=== PATIENT | male | born 1940 | race Caucasian/White ===

== ENCOUNTER 2017-08-14 21:08 | Inpatient (IN) | payer OTHER, MEDICARE ==
[~2017-08-14] VITALS: Ht 182.9 cm; Wt 107.9 kg
[~2017-08-14 21:08] MED LIST: ACET500; ACET500 PO; AMLO10 PO; AMLO5 PO; AMOCLA500 PO; ASPI81CH PO; ATOR80 PO; AZIT500 PO; Acidophilus La100 GM; Alavert D-12 A1 EACH PO; Aspir 8181 MG PO; CARV25 PO; CARV6.25 PO; CILO100 PO; CLARITIN10 MG PO; CLOP75 PO; CYAN1000 PO; CYAN1000I IM; Cilostazol50 MG PO; Citalopram HBr20 MG PO; Coumadin5 MG PO; DABI150C PO; DIAZ2 PO; DIGO.125 PO; DIGOX125 MCG PO; DILT30 PO; DIPATR PO; DOCU100 PO; DOXY100; Doxycycline Hy100 MG; ENOX100I SC; ESCI20 PO; EXTRA STRENGTH500 MG PO; FAMO20 PO; FISH1000 PO; FOLI1 PO; FURO20 PO; FURO40 PO; Flunisolide25 ML; GABA600 PO; GLIP10 PO; HUMULIN R500 UNIT/1 SQ; HYDACE5 PO; Humalog Mi100 UNIT/4; INSULANPEN; LEVFLO500 PO; LORA10 PO; LOSA50 PO; MAGOXI400 PO; METF500 PO; METO100ER PO; METOPROLOL; NITR.4SL SL; Neurontin600 MG PO; Nitrostat0.3 MG SL; Nyamyc15 GM TOP; OMEP20ER; OXYC5; OXYC5 PO; Oxycodone HCl5 M1 PO; PANT40 PO; POTA10T PO; POTCHL10ER PO; PRED20 PO; ROBITUSSIN NIG118 ML PO; SACC250C PO; TAMS.4ER PO; TIOT18 INH; TRAM50 PO; TRIA80TC TOP; Tylophen500 MG PO; VANC250 PO; XARELTO15 MG PO
[2017-08-14] MEDS ORDERED: ELIQUIS5 M1 PO (21:23)
[2017-08-14] MEDS ORDERED: CEFP200 PO (21:26)
[2017-08-14] MEDS ORDERED: DOXY100 PO (21:26)
[2017-08-14] MEDS ORDERED: ALBU3IS (21:29)
[2017-08-14] MEDS ORDERED: HYDR10 PO (21:30)
[2017-08-14] MEDS ORDERED: ISOMON20 PO (21:30)
[2017-08-14] MEDS ORDERED: LORA1SY PO (21:31)
[2017-08-14] MEDS ORDERED: METO50 PO (21:31)
[2017-08-14] MEDS ORDERED: PYRI100 PO (21:32)
[2017-08-14] MEDS ORDERED: SPIR25 PO (21:32)
[2017-08-14] MEDS ORDERED: TORS10 PO (21:32)
[2017-08-14 23:39] LABS: Digoxin (Lanoxin) 1.94 ug/mL (0.80-2.00); Vancomycin, Random 20.2 ug/mL
[2017-08-15] MEDS ORDERED: DIPATRL PO (00:31)
[2017-08-15 03:11] LABS: BASOPHILS ABSOLUTE AUTO 0.05 K/mm3 (0.00-0.23); BASOPHILS PERCENT AUTO 1 % (0-2); EOSINOPHILS ABSOLUTE AUTO 0.29 K/mm3 (0.00-0.68); EOSINOPHILS PERCENT AUTO 3 % (0-6); Hematocrit 31.9 % (37.0-53.0); Hemoglobin 9.9 g/dL (13.5-17.5); IMMATURE GRAN ABSOLUTE AUTO 0.02 K/mm3 (0.00-0.10); IMMATURE GRAN PERCENT AUTO 0 % (0-1); LYMPHOCYTES ABSOLUTE AUTO 0.64 K/mm3 (0.84-5.20); LYMPHOCYTES PERCENT AUTO 6 % (21-46); MONOCYTES ABSOLUTE AUTO 0.77 K/mm3 (0.16-1.47); MONOCYTES PERCENT AUTO 8 % (4-13); Mean Corpuscular HGB 31.6 pg (26.0-34.0); Mean Corpuscular Volume 102 fL (80-100); Mean Platelet Volume 9.4 fL (9.1-12.4); NEUTROPHILS ABSOLUTE AUTO 8.39 K/mm3 (1.96-9.15); NEUTROPHILS PERCENT AUTO 83 % (41-73); Platelet Count 208 K/mm3 (150-400); RDW Coefficient Variation 13.9 % (11.7-14.2); RDW Standard Deviation 51.9 fL (35.1-46.3); Red Blood Cell Count 3.13 M/mm3 (4.30-5.90); White Blood Cell Count 10.16 K/mm3 (4.00-11.30)
[2017-08-15 03:31] LABS: Alanine Aminotransfer (ALT/SGP 47 U/L (12-78); Albumin/Globulin Ratio 0.4 (0.8-1.8); Alk Phos 300 U/L (50-136); Anion Gap 10 mmol/L (6-16); Aspartate Aminotrans (AST/SGOT 62 U/L (12-37); Bilirubin, Total 0.6 mg/dL (0.1-1.0); Blood Urea Nitrogen 68 mg/dL (8-24); Bun/Creatinine Ratio 22.1 (12.0-20.0); CO2, Blood 26 mmol/L (21-32); CPK Creatine Kinase 111 U/L (39-308); Calcium, Blood 8.6 mg/dL (8.5-10.1); Chloride, Blood 103 mmol/L (98-108); Creatine Kinase MB 1.5 ng/mL (0.0-3.6); Creatine Kinase MB Index 1.4 (0.0-4.0); Creatinine, Blood 3.08 mg/dL (0.60-1.20); Globulin, Blood 4.9 g/dL (2.2-4.0); Glomerular Filtration Rate 21 (60-); Glucose, Blood 131 mg/dL (70-99); Potassium, Blood 4.5 mmol/L (3.5-5.5); Sodium, Blood 139 mmol/L (136-145); Total Protein, Blood 6.9 g/dL (6.4-8.2); Troponin I 0.033 ng/mL (0.000-0.040)
[2017-08-16 05:28] LABS: Vancomycin, Random 20.9 ug/mL
[2017-08-16 09:15] LABS: Hematocrit 31.5 % (37.0-53.0); Hemoglobin 9.8 g/dL (13.5-17.5); Mean Corpuscular HGB 32.1 pg (26.0-34.0); Mean Corpuscular HGB Conc 31.1 g/dL (31.5-36.5); Mean Corpuscular Volume 103 fL (80-100); Mean Platelet Volume 9.4 fL (9.1-12.4); Platelet Count 214 K/mm3 (150-400); RDW Coefficient Variation 13.9 % (11.7-14.2); RDW Standard Deviation 52.7 fL (35.1-46.3); Red Blood Cell Count 3.05 M/mm3 (4.30-5.90); White Blood Cell Count 8.68 K/mm3 (4.00-11.30)
[2017-08-16 10:08] LABS: Anion Gap 11 mmol/L (6-16); Blood Urea Nitrogen 72 mg/dL (8-24); Bun/Creatinine Ratio 25.4 (12.0-20.0); CO2, Blood 25 mmol/L (21-32); Calcium, Blood 9.1 mg/dL (8.5-10.1); Chloride, Blood 103 mmol/L (98-108); Creatinine, Blood 2.84 mg/dL (0.60-1.20); Glomerular Filtration Rate 23 (60-); Glucose, Blood 247 mg/dL (70-99); Potassium, Blood 4.6 mmol/L (3.5-5.5); Sodium, Blood 139 mmol/L (136-145)
[2017-08-17 04:34] LABS: Vancomycin, Random 13.9 ug/mL
[2017-08-17] MEDS ORDERED: ESCI20 PO (13:33)
[2017-08-17] MEDS ORDERED: SACC250C PO (13:34)
[2017-08-17] MEDS ORDERED: AZIT500 PO (13:35)
[2017-08-17] MEDS ORDERED: CEFU500T30 PO (13:36)
== END 2017-08-17 14:07 | disposition home or self-care (01) | DRG 194 ==
LOC: ER 21:08 → PCU 22:47
PROVIDERS: Family Medicine; Internal Medicine
DX: J18.9 Pneumonia, unspecified organism (principal); I13.0 Hypertensive heart and chronic kidney disease with heart failure and stage 1 through stage 4 chronic kidney disease, or unspecified chronic kidney disease; I50.32 Chronic diastolic (congestive) heart failure; N17.9 Acute kidney failure, unspecified; Y95 Nosocomial condition; N18.3 Chronic kidney disease, stage 3 (moderate); E11.22 Type 2 diabetes mellitus with diabetic chronic kidney disease; I48.2 Chronic atrial fibrillation; G47.33 Obstructive sleep apnea (adult) (pediatric); M48.02 Spinal stenosis, cervical region; I25.10 Atherosclerotic heart disease of native coronary artery without angina pectoris; K21.9 Gastro-esophageal reflux disease without esophagitis; I95.9 Hypotension, unspecified; R10.32 Left lower quadrant pain; Z87.891 Personal history of nicotine dependence; Z95.1 Presence of aortocoronary bypass graft; Z95.5 Presence of coronary angioplasty implant and graft; Z95.2 Presence of prosthetic heart valve; Z88.3 Allergy status to other anti-infective agents; Z88.8 Allergy status to other drugs, medicaments and biological substances; Z79.02 Long term (current) use of antithrombotics/antiplatelets; Z79.82 Long term (current) use of aspirin; Z79.4 Long term (current) use of insulin; Z79.899 Other long term (current) drug therapy
CPT/HCPCS: 36415; 71046; 74176; 80048; 80053; 80162; 80202; 82550; 82553; 82947; 83036; 83605; 83880; 84484; 85025; 85027; 87493; 94640; 94762; 96374; 99285; J0696; J1815; J1940; J2543; J3370; J7030; J7050

== ENCOUNTER 2018-08-12 00:25 | Emergency (ER) | payer SELFPAY ==
[~2018-08-12] VITALS: Ht 182.9 cm; Wt 99.8 kg
[~2018-08-12 00:25] MED LIST changes: +ALBU3IS; +CEFP200 PO; +CEFU500T30 PO; +DIPATRL PO; +DOXY100 PO; +ELIQUIS5 M1 PO; +HYDR10 PO; +ISOMON20 PO; +LORA1SY PO; +METO50 PO; +PYRI100 PO; +SPIR25 PO; +TORS10 PO
[2018-08-12] MEDS ORDERED: Lomotil Tablet1 EACH PO (01:30)
[2018-08-12] MEDS ORDERED: LORATADINE10 MG PO (01:33)
[2018-08-12] MEDS ORDERED: METO100ER PO (01:34)
[2018-08-12] MEDS ORDERED: SERT100 PO (01:35)
[2018-08-12] MEDS ORDERED: Thera-Gesic Ana85 GM TOP (01:36)
[2018-08-12 02:34] LABS: BASOPHILS ABSOLUTE AUTO 0.05 K/mm3 (0.00-0.23); BASOPHILS PERCENT AUTO 0 % (0-2); EOSINOPHILS ABSOLUTE AUTO 0.14 K/mm3 (0.00-0.68); EOSINOPHILS PERCENT AUTO 1 % (0-6); Hemoglobin 12.7 g/dL (13.5-17.5); IMMATURE GRAN ABSOLUTE AUTO 0.03 K/mm3 (0.00-0.10); IMMATURE GRAN PERCENT AUTO 0 % (0-1); LYMPHOCYTES ABSOLUTE AUTO 0.87 K/mm3 (0.84-5.20); LYMPHOCYTES PERCENT AUTO 7 % (21-46); MONOCYTES ABSOLUTE AUTO 0.89 K/mm3 (0.16-1.47); MONOCYTES PERCENT AUTO 7 % (4-13); Mean Corpuscular HGB 32.2 pg (26.0-34.0); Mean Corpuscular HGB Conc 31.8 g/dL (31.5-36.5); Mean Corpuscular Volume 101 fL (80-100); Mean Platelet Volume 9.4 fL (9.1-12.4); NEUTROPHILS PERCENT AUTO 85 % (41-73); Platelet Count 130 K/mm3 (150-400); RDW Coefficient Variation 13.2 % (11.7-14.2); RDW Standard Deviation 49.3 fL (35.1-46.3); Red Blood Cell Count 3.95 M/mm3 (4.30-5.90); White Blood Cell Count 12.98 K/mm3 (4.00-11.30)
[2018-08-12 02:44] LABS: Albumin, Blood 3.3 g/dL (3.4-5.0); Albumin/Globulin Ratio 0.8 (0.8-1.8); Bilirubin, Total 0.3 mg/dL (0.1-1.0); Bun/Creatinine Ratio 21.1 (12.0-20.0); Calcium, Blood 8.4 mg/dL (8.5-10.1); Creatinine, Blood 1.99 mg/dL (0.60-1.20); Globulin, Blood 3.9 g/dL (2.2-4.0); Potassium, Blood 5.1 mmol/L (3.5-5.5); Total Protein, Blood 7.2 g/dL (6.4-8.2)
[2018-08-12] MEDS ORDERED: ONDA4ODT MM (03:24)
== END 2018-08-12 03:51 | disposition home or self-care (01) ==
LOC: ER 00:25
PROVIDERS: Emergency Medicine
DX: K52.9 Noninfective gastroenteritis and colitis, unspecified (principal); Z88.1 Allergy status to other antibiotic agents; Z88.8 Allergy status to other drugs, medicaments and biological substances; Z79.899 Other long term (current) drug therapy; Z79.82 Long term (current) use of aspirin; Z79.4 Long term (current) use of insulin; I13.0 Hypertensive heart and chronic kidney disease with heart failure and stage 1 through stage 4 chronic kidney disease, or unspecified chronic kidney disease; E11.22 Type 2 diabetes mellitus with diabetic chronic kidney disease; I50.9 Heart failure, unspecified; N18.9 Chronic kidney disease, unspecified; I48.91 Unspecified atrial fibrillation; K21.9 Gastro-esophageal reflux disease without esophagitis; Z87.891 Personal history of nicotine dependence
CPT/HCPCS: 36415; 71046; 80053; 82947; 83605; 85025; 99284-25

== ENCOUNTER 2018-10-09 10:40 | Emergency (ER) | payer OTHER ==
[~2018-10-09] VITALS: Ht 185.4 cm; Wt 107.0 kg
[~2018-10-09 10:40] MED LIST changes: +LORATADINE10 MG PO; +Lomotil Tablet1 EACH PO; +ONDA4ODT MM; +SERT100 PO; +Thera-Gesic Ana85 GM TOP
[2018-10-09 11:03] LABS: BASOPHILS ABSOLUTE AUTO 0.06 K/mm3 (0.00-0.23); BASOPHILS PERCENT AUTO 1 % (0-2); EOSINOPHILS ABSOLUTE AUTO 0.23 K/mm3 (0.00-0.68); EOSINOPHILS PERCENT AUTO 3 % (0-6); Hemoglobin 11.3 g/dL (13.5-17.5); IMMATURE GRAN ABSOLUTE AUTO 0.03 K/mm3 (0.00-0.10); IMMATURE GRAN PERCENT AUTO 0 % (0-1); LYMPHOCYTES ABSOLUTE AUTO 1.31 K/mm3 (0.84-5.20); LYMPHOCYTES PERCENT AUTO 18 % (21-46); MONOCYTES ABSOLUTE AUTO 0.58 K/mm3 (0.16-1.47); MONOCYTES PERCENT AUTO 8 % (4-13); Mean Corpuscular HGB 31.9 pg (26.0-34.0); Mean Corpuscular HGB Conc 32.3 g/dL (31.5-36.5); Mean Corpuscular Volume 99 fL (80-100); Mean Platelet Volume 9.2 fL (9.1-12.4); NEUTROPHILS ABSOLUTE AUTO 5.25 K/mm3 (1.96-9.15); NEUTROPHILS PERCENT AUTO 70 % (41-73); Platelet Count 139 K/mm3 (150-400); RDW Standard Deviation 50.4 fL (35.1-46.3); Red Blood Cell Count 3.54 M/mm3 (4.30-5.90); White Blood Cell Count 7.46 K/mm3 (4.00-11.30)
[2018-10-09 11:23] LABS: Albumin, Blood 3.1 g/dL (3.4-5.0); Albumin/Globulin Ratio 0.8 (0.8-1.8); Bilirubin, Total 0.5 mg/dL (0.1-1.0); Bun/Creatinine Ratio 17.3 (12.0-20.0); Calcium, Blood 8.3 mg/dL (8.5-10.1); Creatinine, Blood 1.68 mg/dL (0.60-1.20); Potassium, Blood 4.7 mmol/L (3.5-5.5); Total Protein, Blood 7.1 g/dL (6.4-8.2); Troponin I 0.021 ng/mL (0.000-0.040)
[2018-12-10] MEDS ORDERED: CYAN1000I IM (04:43)
[2018-12-10] MEDS ORDERED: HUMULIN R500 UNIT/1 SC (04:49)
[2018-12-10] MEDS ORDERED: HUMULIN R500 UNIT/1 (04:49)
== END 2018-10-09 15:20 | disposition home or self-care (01) ==
LOC: ER 10:40
PROVIDERS: Emergency Medicine
DX: R07.9 Chest pain, unspecified (principal); I13.0 Hypertensive heart and chronic kidney disease with heart failure and stage 1 through stage 4 chronic kidney disease, or unspecified chronic kidney disease; E11.22 Type 2 diabetes mellitus with diabetic chronic kidney disease; N18.9 Chronic kidney disease, unspecified; I50.9 Heart failure, unspecified; I25.10 Atherosclerotic heart disease of native coronary artery without angina pectoris; K21.9 Gastro-esophageal reflux disease without esophagitis; I48.91 Unspecified atrial fibrillation; Z88.1 Allergy status to other antibiotic agents; Z88.8 Allergy status to other drugs, medicaments and biological substances; Z79.82 Long term (current) use of aspirin; Z79.01 Long term (current) use of anticoagulants; Z79.899 Other long term (current) drug therapy; V49.40XA Driver injured in collision with unspecified motor vehicles in traffic accident, initial encounter
CPT/HCPCS: 36415; 71045; 80053; 82947; 84484; 85025; 93005; 93010; 96374; 96375; 99284-25; J2270; J2405

== ENCOUNTER 2019-07-09 10:11 | Emergency (ER) | payer OTHER ==
[~2019-07-09] VITALS: Ht 185.4 cm; Wt 102.1 kg
[~2019-07-09 10:11] MED LIST changes: +CEPH500 PO; +HUMULIN R500 UNIT/1; +HUMULIN R500 UNIT/1 SC
== END 2019-07-09 11:32 | disposition home or self-care (01) ==
LOC: ER 10:11
DX: S93.402A Sprain of unspecified ligament of left ankle, initial encounter (principal); S90.32XA Contusion of left foot, initial encounter; I13.0 Hypertensive heart and chronic kidney disease with heart failure and stage 1 through stage 4 chronic kidney disease, or unspecified chronic kidney disease; E11.22 Type 2 diabetes mellitus with diabetic chronic kidney disease; I50.9 Heart failure, unspecified; N18.9 Chronic kidney disease, unspecified; I48.91 Unspecified atrial fibrillation; G47.30 Sleep apnea, unspecified; I25.10 Atherosclerotic heart disease of native coronary artery without angina pectoris; K21.9 Gastro-esophageal reflux disease without esophagitis; Z88.1 Allergy status to other antibiotic agents; Z88.8 Allergy status to other drugs, medicaments and biological substances; Z79.899 Other long term (current) drug therapy; Z79.02 Long term (current) use of antithrombotics/antiplatelets; Z79.4 Long term (current) use of insulin; Z79.82 Long term (current) use of aspirin; Z87.891 Personal history of nicotine dependence; W19.XXXA Unspecified fall, initial encounter; Y92.002 Bathroom of unspecified non-institutional (private) residence as the place of occurrence of the external cause
CPT/HCPCS: 73610; 73630; 99283-25

== ENCOUNTER 2021-01-18 06:32 | Inpatient (IN) | payer OTHER ==
[~2021-01-18] VITALS: Ht 185.4 cm; Wt 103.2 kg
[~2021-01-18 06:32] MED LIST changes: +THERA GESIC TOP; -Thera-Gesic Ana85 GM TOP; +Vitamin B-121000 MCG PO
[2021-01-18 07:14] LABS: BASOPHILS ABSOLUTE AUTO 0.05 K/mm3 (0.00-0.23); BASOPHILS PERCENT AUTO 0 % (0-2); EOSINOPHILS ABSOLUTE AUTO 0.05 K/mm3 (0.00-0.68); EOSINOPHILS PERCENT AUTO 0 % (0-6); Hematocrit 36.5 % (37.0-53.0); Hemoglobin 11.1 g/dL (13.5-17.5); IMMATURE GRAN ABSOLUTE AUTO 0.06 K/mm3 (0.00-0.10); IMMATURE GRAN PERCENT AUTO 1 % (0-1); LYMPHOCYTES ABSOLUTE AUTO 0.77 K/mm3 (0.84-5.20); LYMPHOCYTES PERCENT AUTO 7 % (21-46); MONOCYTES PERCENT AUTO 8 % (4-13); Mean Corpuscular HGB 29.1 pg (26.0-34.0); Mean Corpuscular HGB Conc 30.4 g/dL (31.5-36.5); Mean Corpuscular Volume 96 fL (80-100); Mean Platelet Volume 9.8 fL (9.1-12.4); NEUTROPHILS ABSOLUTE AUTO 9.44 K/mm3 (1.96-9.15); NEUTROPHILS PERCENT AUTO 84 % (41-73); Platelet Count 203 K/mm3 (150-400); RDW Coefficient Variation 15.9 % (11.7-14.2); RDW Standard Deviation 55.5 fL (35.1-46.3); Red Blood Cell Count 3.82 M/mm3 (4.30-5.90); White Blood Cell Count 11.27 K/mm3 (4.00-11.30)
[2021-01-18 07:34] LABS: Albumin, Blood 2.4 g/dL (3.4-5.0); Albumin/Globulin Ratio 0.5 (0.8-1.8); Bilirubin, Total 0.7 mg/dL (0.1-1.0); Bun/Creatinine Ratio 25.4 (12.0-20.0); Calcium, Blood 8.9 mg/dL (8.5-10.1); Creatinine, Blood 1.3 mg/dL (0.60-1.20); Globulin, Blood 4.7 g/dL (2.2-4.0); Potassium, Blood 5.2 mmol/L (3.5-5.5); Total Protein, Blood 7.1 g/dL (6.4-8.2); Troponin I 0.026 ng/mL (0.000-0.040)
[2021-01-18 07:58] LABS: Influenza A, PCR NEGATIVE (NEGATIVE); Influenza B, PCR NEGATIVE (NEGATIVE); Resp Syncytial Virus, PCR NEGATIVE (NEGATIVE); SARS-Cov-2 (COVID-19) PCR, MMC NEGATIVE (NEGATIVE)
[2021-01-18 09:32] LABS: Digoxin (Lanoxin) 0.15 ug/mL (0.80-2.00)
[2021-01-18] MEDS ORDERED: DOXY100 PO (17:04)
[2021-01-18] MEDS ORDERED: PRED20 PO (17:05)
--- NOTE | 2021-01-18 17:06 | NUR ---
PT ARRIVED TO THE MEDICAL FLOOR AT 1215 VIA GURNEY. THE PT WAS ABLE TO SLIDE OVER FROM THE GURNY TO THE BED WITHOUT ASSISTANCE. THE PT WAS WEARING A CPAP AT THE TIME OF ARRIVAL TO THE ROOM. THE PT APPEARED TO BE BREATHING EASILY WITH THE CPAP. THE PT WAS CHANGED TO NC AT 5L/MIN PER HIS HOME BASELINE PER HIS REQUEST, THE PT APPEARS TO BE TOLERATING THE NC WELL. PT WAS ORIENTED TO THE ROOM CALL LIGHT AND LAYOUT. THE PT WAS ASSISTED UP TO THE CHAIR WITH MINIMAL ASSISTANCE THIS AFTERNOON AND TOLERATED WELL WITH O2. ECHO WAS COMPLETED AT THE BEDSIDE. CALL LIGHT IN REACH. WILL CONTINUE TO MONITOR AND ASSESS FOR CHANGES
--- NOTE | 2021-01-18 17:23 | NUR ---
Echocardiogram completed.
--- NOTE | 2021-01-19 02:40 | NUR ---
NOTIFIED BY TELEMETRY THAT PT CONVERTED INTO AFIB W/ PVC'S AT WHAT APPEARS TO BE SHORTLY AFTER 0200. UNCLEAR EXACTLY WHAT TIME DUE TO THE TIME CHANGE AND AN ISSUE WITH THE SYSTEM. RATE CURRENTLY IN THE 70'S-80'S. DR. GARCIA NOTIFIED. NO NEW ORDERS. WILL CONTINUE TO MONITOR.
[2021-01-19 04:35] LABS: BASOPHILS ABSOLUTE AUTO 0.06 K/mm3 (0.00-0.23); BASOPHILS PERCENT AUTO 1 % (0-2); EOSINOPHILS ABSOLUTE AUTO 0.21 K/mm3 (0.00-0.68); EOSINOPHILS PERCENT AUTO 2 % (0-6); Hematocrit 33.6 % (37.0-53.0); Hemoglobin 10.4 g/dL (13.5-17.5); IMMATURE GRAN ABSOLUTE AUTO 0.04 K/mm3 (0.00-0.10); IMMATURE GRAN PERCENT AUTO 1 % (0-1); LYMPHOCYTES ABSOLUTE AUTO 1.09 K/mm3 (0.84-5.20); LYMPHOCYTES PERCENT AUTO 13 % (21-46); MONOCYTES ABSOLUTE AUTO 0.91 K/mm3 (0.16-1.47); MONOCYTES PERCENT AUTO 11 % (4-13); Mean Corpuscular Volume 94 fL (80-100); Mean Platelet Volume 9.6 fL (9.1-12.4); NEUTROPHILS ABSOLUTE AUTO 6.35 K/mm3 (1.96-9.15); NEUTROPHILS PERCENT AUTO 73 % (41-73); Platelet Count 181 K/mm3 (150-400); RDW Coefficient Variation 15.4 % (11.7-14.2); RDW Standard Deviation 53.4 fL (35.1-46.3); Red Blood Cell Count 3.59 M/mm3 (4.30-5.90); White Blood Cell Count 8.66 K/mm3 (4.00-11.30)
[2021-01-19 04:52] LABS: Bun/Creatinine Ratio 24.8 (12.0-20.0); Calcium, Blood 8.8 mg/dL (8.5-10.1); Creatinine, Blood 1.37 mg/dL (0.60-1.20)
--- NOTE | 2021-01-19 06:24 | NUR ---
SHIFT SUMMARY PT CONVERTED TO AFIB AT APPROX 0200. AT APPROX O400 TELEMETRY CALLED TO NOTIFY THIS RN THAT PT WAS DROPPING DOWN INTO THE 40'S AND INTO BIGEMINY LASTING ONLY A COUPLE SECONDS AND THEN BACK INTO AFIB IN THE 70'S-80'S. OVER THE NEXT FEW HOURS FREQUENCY OF BIGEMINY INCREASED HAPPENING APPROX EVERY 6 MINUTES. PT CONTINUED TO GO BETWEEN AFIB 80'S-100'S AND BIGEMINY 40'S-60'S. NOTIFIED DR. GARCIA. NEW ORDER TO CAPTURE EKG WHILE PT'S HEART RATE WAS IN THE 40'S AND TO PLACE ON CHART FOR DAY SHIFT PROVIDER TO DECIDE IF PT NEEDS CARDIOLOGY CONSULTING. EKG OBTAINED. PT ASYMPTOMATIC THROUGHOUT. VITAL SIGNS REMAINED STABLE. PT REPORTS THAT THIS IS NOT UNCOMMON FOR HIM. PT REMAINED ON 5 L. SLIGHT FEVER 100.2. MEDICATED W/ TYLENOL. PT PLEASANT AND COOPERATIVE. APPEARED TO SLEEP WELL MOST OF THE EVENING. WILL CONTINUE TO MONITOR.
--- NOTE | 2021-01-19 18:28 | NUR ---
PT IS A/OX3, PLEASANT AND COOPERATIVE, THE PT APPEARS TO BE BREATHING EASILY ON 02 @ 5L/MIN AT REST HIS BASELINE O2 AT HOME. THE PT DENIED CHEST PAIN OR ANY OTHER PAIN T/O THE DAY. PER TELE THE PT HAD A SUSTAINED RYTHM OF BYGEMINY DR. ALEMAN WAS CALLED, THIS RYTHM WAS EXPECTED WILL CONTINUE TO MONITOR THE PATIENT FOR CHANGES. RYTHM STRIP PLACED IN THE PTS CHART. CALL LIGHT IN REACH. WILL CONTINUE TO MONITOR AND ASSESS FOR CHANGES
[2021-01-20] MEDS ORDERED: FERROUS GLUCON324 M7 PO (00:19)
[2021-01-20] MEDS ORDERED: ELIQUIS2.5 MG PO (00:20)
[2021-01-20] MEDS ORDERED: NOVOLOG FL100 UNIT/3 SC (00:22)
[2021-01-20] MEDS ORDERED: ASCO500 PO (00:27)
[2021-01-20] MEDS ORDERED: FINA5 PO (00:28)
[2021-01-20] MEDS ORDERED: GUAI600T33 PO (00:28)
[2021-01-20] MEDS ORDERED: SPIRIVA RESPIMAT4 G3 INH (00:29)
--- NOTE | 2021-01-20 01:33 | NUR ---
PER WASH HOUSE SUPERVISOR, PT HAD AN EPISODE OF VTACH LASTING 10 MINUTES. ALTERNATING WITH PERIODS OF BIGEMINY OF TRIGEMINY. DR. HARRIS WAS MADE AWARE. LOPRESSOR 25 MG X 1 DOSE GIVEN. PT DENIES ANY CHEST PAIN OR PALPITATION. DENIES ANY DISCOMFORT. VSS. AM LAB ORDERED. PT IS RESTING IN BED. O2 [address] RESP UNLABORED. SAFETY AND COMFORT MEASURES MAINTAINED.
--- NOTE | 2021-01-20 04:31 | NUR ---
AAO. VSS. NO FURTHER EVENTS ON TELE AFTER LOPRESSOR 25 MG DOSE. DENIES CHEST PAIN OR PALPITATION. ON TELE WITH BIGEMINY. O2 5L NC IN PLACE. NO ACUTE CHANGE IN STATUS. VSS. CALL LIGHT WITHIN REACH.
--- NOTE | 2021-01-20 05:26 | NUR ---
PER ORTHOPEDIC SHOES SALESPERSON, PT HAS BEEN HAVING FURTHER EPISODES OF VTACH ALTERNATING WITH BIGEMINY AND TRIGEMINY. DR. GARCIA WAS MADE AWARE. NO NEW ORDER GIVEN. SHE ADVISED TO MONITOR FOR ABNORMAL LAB VALUES IN AM AND TO KEEP PT ON TELE. PT RESTING IN BED WITH EYES CLOSED. RESP UNLABORED. VSS.
[2021-01-20 05:50] LABS: Calcium, Blood 9.2 mg/dL (8.5-10.1); Creatinine, Blood 1.54 mg/dL (0.60-1.20); Magnesium, Blood 1.3 mg/dL (1.6-2.4); Potassium, Blood 3.9 mmol/L (3.5-5.5); Thyroid Stimulating Hormone 3.11 uIU/mL (0.360-4.800)
[2021-01-20] MEDS ORDERED: INSULANPEN SC (15:37)
[2021-01-20] MEDS ORDERED: ENTRESTO 24 MG1 EACH PO (15:38)
--- NOTE | 2021-01-20 16:10 | NUR ---
DISCHARGE PATIENT TRANSPORTED VIA WHEELCHAIR TO PRIVATE VEHICLE. DISCHARGE INSTRUCTIONS EXPLAINED TO PATIENT. PATIENT STATED UNDERSTANDING. PACKET SENT WITH PATIENT. BELONGINGS SENT WITH PATIENT. IV REMOVED WITHOUT DIFFICULTY. TELE REMOVED WITHOUT DIFFICULTY. MEDICATIONS FAXED TO PREFERRED PHARMACY. PATIENT PCP TO CALL PATIENT TO SCHEDULE FOLLOW UP.
== END 2021-01-20 16:05 | disposition home health service (06) | DRG 291 ==
LOC: ER 06:32 → MEDS 10:18 → ENPENDDIS 01-20 14:49 → MEDS 01-20 16:05
PROVIDERS: Emergency Medicine; ADMIT Internal Medicine
DX: I13.0 Hypertensive heart and chronic kidney disease with heart failure and stage 1 through stage 4 chronic kidney disease, or unspecified chronic kidney disease (principal); I50.23 Acute on chronic systolic (congestive) heart failure; I48.20 Chronic atrial fibrillation, unspecified; F32.0 Major depressive disorder, single episode, mild; Z66 Do not resuscitate; Z20.822 Contact with and (suspected) exposure to COVID-19; I35.0 Nonrheumatic aortic (valve) stenosis; N18.30 Chronic kidney disease, stage 3 unspecified; N40.0 Benign prostatic hyperplasia without lower urinary tract symptoms; E78.5 Hyperlipidemia, unspecified; J44.9 Chronic obstructive pulmonary disease, unspecified; E11.22 Type 2 diabetes mellitus with diabetic chronic kidney disease; G47.30 Sleep apnea, unspecified; I25.10 Atherosclerotic heart disease of native coronary artery without angina pectoris; K21.9 Gastro-esophageal reflux disease without esophagitis; Z95.1 Presence of aortocoronary bypass graft; Z95.2 Presence of prosthetic heart valve; Z87.891 Personal history of nicotine dependence; Z88.1 Allergy status to other antibiotic agents; Z88.8 Allergy status to other drugs, medicaments and biological substances; Z79.2 Long term (current) use of antibiotics; Z79.01 Long term (current) use of anticoagulants; Z79.4 Long term (current) use of insulin; Z79.82 Long term (current) use of aspirin; Z79.899 Other long term (current) drug therapy
CPT/HCPCS: 0241U; 36415; 71045; 80048; 80053; 80162; 82947; 83735; 83880; 84443; 84484; 85025; 93005; 93010; 93306; 94660; 94762; 96374; 99285-25; A9270; J1815; J1940; J3475

== ENCOUNTER 2021-01-27 01:25 | Emergency (ER) | payer OTHER ==
[~2021-01-27] VITALS: Ht 185.4 cm; Wt 85.7 kg
[~2021-01-27 01:25] MED LIST changes: +ASCO500 PO; +ELIQUIS2.5 MG PO; +ENTRESTO 24 MG1 EACH PO; +FERROUS GLUCON324 M7 PO; +FINA5 PO; +GUAI600T33 PO; +INSULANPEN SC; +NOVOLOG FL100 UNIT/3 SC; +SPIRIVA RESPIMAT4 G3 INH
[2021-01-27 01:59] LABS: BASOPHILS ABSOLUTE AUTO 0.04 K/mm3 (0.00-0.23); BASOPHILS PERCENT AUTO 0 % (0-2); EOSINOPHILS ABSOLUTE AUTO 0.16 K/mm3 (0.00-0.68); EOSINOPHILS PERCENT AUTO 2 % (0-6); Hematocrit 36.5 % (37.0-53.0); Hemoglobin 11.2 g/dL (13.5-17.5); IMMATURE GRAN ABSOLUTE AUTO 0.04 K/mm3 (0.00-0.10); IMMATURE GRAN PERCENT AUTO 0 % (0-1); LYMPHOCYTES ABSOLUTE AUTO 1.31 K/mm3 (0.84-5.20); LYMPHOCYTES PERCENT AUTO 14 % (21-46); MONOCYTES PERCENT AUTO 5 % (4-13); Mean Corpuscular HGB 28.7 pg (26.0-34.0); Mean Corpuscular HGB Conc 30.7 g/dL (31.5-36.5); Mean Corpuscular Volume 94 fL (80-100); Mean Platelet Volume 9.4 fL (9.1-12.4); NEUTROPHILS ABSOLUTE AUTO 7.37 K/mm3 (1.96-9.15); NEUTROPHILS PERCENT AUTO 78 % (41-73); Platelet Count 240 K/mm3 (150-400); RDW Coefficient Variation 15.7 % (11.7-14.2); RDW Standard Deviation 53.7 fL (35.1-46.3); White Blood Cell Count 9.42 K/mm3 (4.00-11.30)
[2021-01-27 02:11] LABS: Albumin, Blood 2.5 g/dL (3.4-5.0); Albumin/Globulin Ratio 0.6 (0.8-1.8); Bilirubin, Total 0.3 mg/dL (0.1-1.0); Bun/Creatinine Ratio 30.1 (12.0-20.0); Calcium, Blood 8.7 mg/dL (8.5-10.1); Creatinine, Blood 1.43 mg/dL (0.60-1.20); Globulin, Blood 4.5 g/dL (2.2-4.0); Potassium, Blood 4.5 mmol/L (3.5-5.5)
== END 2021-01-27 04:33 | disposition home or self-care (01) ==
LOC: ER 01:25
PROVIDERS: Student in an Organized Health Care Education/Training Program
DX: I13.0 Hypertensive heart and chronic kidney disease with heart failure and stage 1 through stage 4 chronic kidney disease, or unspecified chronic kidney disease (principal); I50.9 Heart failure, unspecified; E11.22 Type 2 diabetes mellitus with diabetic chronic kidney disease; N18.9 Chronic kidney disease, unspecified; I48.91 Unspecified atrial fibrillation; I25.10 Atherosclerotic heart disease of native coronary artery without angina pectoris; K21.9 Gastro-esophageal reflux disease without esophagitis; Z88.1 Allergy status to other antibiotic agents; Z88.8 Allergy status to other drugs, medicaments and biological substances; Z79.899 Other long term (current) drug therapy; Z79.82 Long term (current) use of aspirin; Z79.4 Long term (current) use of insulin; Z79.01 Long term (current) use of anticoagulants; Z87.891 Personal history of nicotine dependence
CPT/HCPCS: 36415; 71046; 80053; 83880; 84484; 85025; 93005; 93010; 96374; 99285-25; J1940

== ENCOUNTER 2021-05-17 14:10 | Inpatient (IN) | payer OTHER ==
[~2021-05-17] VITALS: Ht 185.4 cm; Wt 104.3 kg
[2021-05-17] MEDS ORDERED: Amiodarone HCl200 MG PO (14:33)
[2021-05-17] MEDS ORDERED: Isosorbide Mono30 MG PO (14:34)
[2021-05-17] MEDS ORDERED: ZINC220 PO (14:41)
[2021-05-17 15:23] LABS: BASOPHILS ABSOLUTE AUTO 0.03 K/mm3 (0.00-0.23); BASOPHILS PERCENT AUTO 0 % (0-2); EOSINOPHILS ABSOLUTE AUTO 0.12 K/mm3 (0.00-0.68); EOSINOPHILS PERCENT AUTO 2 % (0-6); Hematocrit 37.8 % (37.0-53.0); Hemoglobin 11.4 g/dL (13.5-17.5); IMMATURE GRAN ABSOLUTE AUTO 0.02 K/mm3 (0.00-0.10); IMMATURE GRAN PERCENT AUTO 0 % (0-1); LYMPHOCYTES ABSOLUTE AUTO 0.61 K/mm3 (0.84-5.20); LYMPHOCYTES PERCENT AUTO 9 % (21-46); MONOCYTES ABSOLUTE AUTO 0.52 K/mm3 (0.16-1.47); MONOCYTES PERCENT AUTO 8 % (4-13); Mean Corpuscular HGB 28.7 pg (26.0-34.0); Mean Corpuscular HGB Conc 30.2 g/dL (31.5-36.5); Mean Corpuscular Volume 95 fL (80-100); NEUTROPHILS ABSOLUTE AUTO 5.39 K/mm3 (1.96-9.15); NEUTROPHILS PERCENT AUTO 81 % (41-73); Platelet Count 157 K/mm3 (150-400); RDW Coefficient Variation 16.9 % (11.7-14.2); Red Blood Cell Count 3.97 M/mm3 (4.30-5.90); White Blood Cell Count 6.69 K/mm3 (4.00-11.30)
[2021-05-17 15:35] LABS: Albumin, Blood 2.8 g/dL (3.4-5.0); Albumin/Globulin Ratio 0.6 (0.8-1.8); Bilirubin, Total 1.2 mg/dL (0.1-1.0); Bun/Creatinine Ratio 20.1 (12.0-20.0); Calcium, Blood 8.8 mg/dL (8.5-10.1); Creatinine, Blood 1.44 mg/dL (0.60-1.20); Globulin, Blood 4.4 g/dL (2.2-4.0); Potassium, Blood 4.6 mmol/L (3.5-5.5); Total Protein, Blood 7.2 g/dL (6.4-8.2)
[2021-05-17 15:57] LABS: Influenza A, PCR NEGATIVE (NEGATIVE); Influenza B, PCR NEGATIVE (NEGATIVE); Resp Syncytial Virus, PCR NEGATIVE (NEGATIVE); SARS-Cov-2 (COVID-19) PCR, MMC NEGATIVE (NEGATIVE)
[2021-05-17 21:51] LABS: Source, Urine Foley catheter
[2021-05-17 21:56] LABS: Bilirubin, Urine Neg (Neg); Blood, Urine 5+ (Neg); Glucose Qualitative, Urine Neg (Neg); Ketones, Urine Neg (Neg); Leukocyte Esterase, Urine Neg (Neg); Nitrite, Urine Neg (Neg); Protein, Urine 1+ (Neg); Urobilinogen, Urine NORM (Normal)
[2021-05-17 22:19] LABS: Appearance, Urine Clear (Clear); Color, Urine Yellow (P-Yellow)
[2021-05-17 22:20] LABS: Bacteria Not Seen /hpf; Red Blood Cells, Urine 0-2 /hpf (0-2); Squamous Epithelial Cells Not Seen /hpf (Few); White Blood Cells, Urine Not Seen /hpf (0-5)
[2021-05-18 05:17] LABS: BASOPHILS ABSOLUTE AUTO 0.02 K/mm3 (0.00-0.23); BASOPHILS PERCENT AUTO 0 % (0-2); EOSINOPHILS ABSOLUTE AUTO 0.01 K/mm3 (0.00-0.68); EOSINOPHILS PERCENT AUTO 0 % (0-6); Hemoglobin 11.4 g/dL (13.5-17.5); IMMATURE GRAN ABSOLUTE AUTO 0.04 K/mm3 (0.00-0.10); IMMATURE GRAN PERCENT AUTO 1 % (0-1); LYMPHOCYTES ABSOLUTE AUTO 0.33 K/mm3 (0.84-5.20); LYMPHOCYTES PERCENT AUTO 4 % (21-46); MONOCYTES ABSOLUTE AUTO 0.14 K/mm3 (0.16-1.47); MONOCYTES PERCENT AUTO 2 % (4-13); Mean Corpuscular HGB 28.4 pg (26.0-34.0); Mean Corpuscular Volume 95 fL (80-100); Mean Platelet Volume 9.5 fL (9.1-12.4); NEUTROPHILS ABSOLUTE AUTO 7.53 K/mm3 (1.96-9.15); NEUTROPHILS PERCENT AUTO 93 % (41-73); Platelet Count 166 K/mm3 (150-400); RDW Coefficient Variation 16.9 % (11.7-14.2); RDW Standard Deviation 58.3 fL (35.1-46.3); Red Blood Cell Count 4.02 M/mm3 (4.30-5.90); White Blood Cell Count 8.07 K/mm3 (4.00-11.30)
[2021-05-18 05:47] LABS: Albumin, Blood 2.8 g/dL (3.4-5.0); Albumin/Globulin Ratio 0.6 (0.8-1.8); Bilirubin, Total 1.2 mg/dL (0.1-1.0); Bun/Creatinine Ratio 20.8 (12.0-20.0); Calcium, Blood 9.1 mg/dL (8.5-10.1); Creatinine, Blood 1.49 mg/dL (0.60-1.20); Globulin, Blood 4.8 g/dL (2.2-4.0); Magnesium, Blood 1.6 mg/dL (1.6-2.4); Potassium, Blood 4.7 mmol/L (3.5-5.5); Total Protein, Blood 7.6 g/dL (6.4-8.2)
--- NOTE | 2021-05-18 06:13 | NUR ---
SHIFT SUMMARY: PATIENT TOLERATED HENAO PLACEMENT WELL. HENAO PUT OUT 1000ML OF PINK TINGED URINE. AFTER IV LASIX WAS GIVEN PATIENT WAS FOUND TO BE INC. OF A LARGE AMT OF IRINE. HENAO IS CHECKED AND IT IS IN PLACE AND STILL DRAINING URINE. VSS THROUGH OUT SHIFT, NO COMPLIANTS OF PAIN OR DISCOMFORT. PATIENT WAS A-FIB ON TELI WITHA BBB, WITH POLYMORPHIC PVC'S, 4 BEATS WHEN TELI WAS VERIFIED. DR HARRIS WAS MADE AWARE. PATIENT CONTINUED TO HAVE PVC EVENT THROUGH THE NIGHT WHILE SLEEPING, VSS, ASYMPTOMATIC THROUGHOUT. DR GOMEZ WAS ALSO NOTIED THE PVC'S WITH RUNS WERE CONTINUING THROUGHOUT THE NIGHT. NO NEW ORDERS, CONTINUE TO MONITOR.
--- NOTE | 2021-05-18 06:27 | NUR ---
LATE ENTRY FOR 05/17/21 @ 2015: ADMISSION-PATIENT IS RECIEVED FROM ER VIA STRETCHER, ARTIE. PATIENT IS ORIENTED TO ROOM AND CALL SCHMIDT. PATIENT HAS NO COMPLAINTS OF CHEST PAIN AT THIS TIME.
--- NOTE | 2021-05-18 09:48 | NUR ---
DR. RANDA GUERRERO WAS NOTIFIED AT 0945 THAT PATIENT HAS POSSIBLE RECTAL FISTULA. PATIENT POOPED CLEARISH WATERY FLUID WHEN CHANGING DRESSING. PROVIDER STATED TO NOTIFY SURGERY WHEN THEY COME BY OF POSSIBLE FISTULA.
--- NOTE | 2021-05-18 12:32 | NUR ---
DR. SAMI FUNG WAS NOTIFIED AT APPROX 1200 THAT PATIENT HAD BORDERLINE BP IN THE 100'S SYSTOLIC AND THAT MORNING DOSE OF LASIX WAS HELD SINCE PATIENT WAS AFIB IN THE LOW HUNDREDS. STATED THAT THEY WILL ADJUST DOSES PRN.
--- NOTE | 2021-05-18 12:37 | NUR ---
PT. STATES THAT THEY FEEL BETTER THAN LAST NIGHT WHEN ADMITTED. PATIENT HAS NO COMPLAINTS OF SOB. PATIENT IS USING LESS O2 THEN AT HOME. PATIENT STATES HE USES 5L NC AT HOME AND PATIENT IS DOING WELL ON 3L NC. PATIENT IS A AND O 4X. BP WERE ON THE LOW NORMAL MD WAS RECOMMENED TO ADJUST LASIX DOSE.
--- NOTE | 2021-05-18 14:07 | NUR ---
DR. Tiffani BELTRAN NOTIFIED PT COMPLAINS OF CONSTIPATION. ORDERED COLACE BID PO 200MG SCHED.
--- NOTE | 2021-05-18 16:43 | NUR ---
PTS CALLED AND IS UNSURE OF CURRENT MEDICATIONS. PATIENT'S STATES SHE TALKED TO PHARMACIST IN ER AND WHATS IN THE SYSTEM IS THE MOST CURRENT WITH ALL MEDICATIONS. PATIENT HAS HAD MANY NEW CHANGES TO MEDICATIONS RECENTLY. PT. DOES NOT KNOW MEDS AND PHARMACY IS CLOSED.
--- NOTE | 2021-05-19 04:28 | NUR ---
SHIFT SUMMARY: NATALIA CONTINUES TO HAVE FREQUENT PVC'S INCLUDING RUNS OF 4&5 BEAT UP TO 9. VSS, PATIENT REMAINS ASYMPTOMATIC. PATIENT WAS GIVEN PRN TRAZADONE FOR INSOMNIA WHICH HAD POOR EFFECT. PATIENT VERBALIZED ANXIETY DUE TO BAD DREAMS CAUSING FLARE UP OF PTSD. ALSO WORRIED ABOUT HIS BEING HOME ALONE. DR GOMEZ WAS NOTIFIED TWICE. AN ORDER FOR A ONE TIME DOSE OF ATIVAN WAS OBTAINED AND MED WAS GIVEN WITH FAIR EFFECT.
[2021-05-19 05:56] LABS: Albumin, Blood 2.5 g/dL (3.4-5.0); Anion Gap 6 mmol/L (6-16); Blood Urea Nitrogen 49 mg/dL (8-24); Bun/Creatinine Ratio 29.9 (12.0-20.0); CO2, Blood 28 mmol/L (21-32); Calcium, Blood 8.8 mg/dL (8.5-10.1); Chloride, Blood 102 mmol/L (98-108); Creatinine, Blood 1.64 mg/dL (0.60-1.20); Glomerular Filtration Rate 40 (60-); Glucose, Blood 264 mg/dL (70-99); Phosphorus, Blood 3.4 mg/dL (2.5-4.9); Potassium, Blood 4.5 mmol/L (3.5-5.5); Sodium, Blood 136 mmol/L (136-145)
--- NOTE | 2021-05-19 11:15 | NUR ---
PATIENT ANXIOUS TO BE DISCHARGED. PATIENT HAS HAD NO ACUTE CHANGES PATIENT IS ON 3L NC AND BASELINE IS 5L NC AT HOME. PATIENT A AND O 4X AND WAS ABLE TO REPOSTION SELF AND CALL FOR BASIC NEEDS. BLOOD PRESSURES TOLERATED DIURETICS BETTER TODAY THAN YESTERDAY.
[2021-05-19] MEDS ORDERED: ALLO100 PO (14:10)
[2021-05-19] MEDS ORDERED: BUDESONIDE0.5 MG/2 M INH (14:11)
[2021-05-19] MEDS ORDERED: DOCU100 PO (14:11)
[2021-05-19] MEDS ORDERED: ALBU2.5V5 INH (14:12)
[2021-05-19] MEDS ORDERED: SENN187 PO (14:12)
--- NOTE | 2021-05-19 14:48 | NUR ---
DR. SAMI BELTRAN UPDATED ON PATIENT HOME O2 EVAL RESULTS. STATED TO TALK WITH CARBON PAPER INTERLEAFER ABOUT PATIENT SITUATION.
--- NOTE | 2021-05-19 15:54 | NUR ---
PATIENT WAS DISCHARGED AT APPROX 1550 PATIENT WAS TAUGHT ABOUT NEW MEDICATIONS AND FOLLOW UP APPOINTEMENTS. AND THAT NEBULIZER WOULD BE SET UP BY . PATIENT HAD NO QUESTIONS OR CONCERNS PATIENT VOIDED ABOUT 100ML AFTER HENAO REMOVAL. PATIENT HAD TRANSPORT HOME VIA WIFES PERSONAL CAR. DISCHARGE INSTRUCTION WERE GIVEN VERBALLY AND WRITTEN AGAIN TO . HAS NO QUESTIONS AFTER TEACHING.
[2021-06-23] MEDS ORDERED: PRAZOSIN HCL1 M2 PO (18:17)
[2021-06-23] MEDS ORDERED: SOAANZ20 MG PO (18:18)
[2021-06-23] MEDS ORDERED: FOLI1 PO (18:21)
[2021-06-23] MEDS ORDERED: GABAPENTIN600 MG PO (18:21)
[2021-06-23] MEDS ORDERED: TAMSULOSIN HCL0.4 M1 PO (18:23)
[2021-06-23] MEDS ORDERED: B-121000 MC7 PO (18:23)
[2021-06-23] MEDS ORDERED: NITROGLYCERIN0.4 M3 SL (18:24)
[2021-12-05] MEDS ORDERED: MIRT30ST PO (17:31)
[2021-12-05] MEDS ORDERED: NITR.4SL SL (17:31)
[2021-12-05] MEDS ORDERED: MIDODRINE HCL10 M9 PO (17:33)
[2021-12-05] MEDS ORDERED: MICONAZOLE NIT130 GM TOP (17:34)
[2021-12-05] MEDS ORDERED: TOPROL XL25 MG PO (17:35)
[2021-12-05] MEDS ORDERED: GUAI600T33 PO (17:36)
== END 2021-05-19 15:50 | disposition home health service (06) | DRG 291 ==
LOC: ER 14:10 → MEDS 19:52 → ENPENDDIS 05-19 13:20 → MEDS 05-19 15:50
PROVIDERS: Emergency Medicine; Internal Medicine; ADMIT Internal Medicine
DX: I13.0 Hypertensive heart and chronic kidney disease with heart failure and stage 1 through stage 4 chronic kidney disease, or unspecified chronic kidney disease (principal); I50.43 Acute on chronic combined systolic (congestive) and diastolic (congestive) heart failure; J96.01 Acute respiratory failure with hypoxia; J44.1 Chronic obstructive pulmonary disease with (acute) exacerbation; I48.20 Chronic atrial fibrillation, unspecified; Z20.822 Contact with and (suspected) exposure to COVID-19; E11.65 Type 2 diabetes mellitus with hyperglycemia; N18.30 Chronic kidney disease, stage 3 unspecified; G47.33 Obstructive sleep apnea (adult) (pediatric); K21.9 Gastro-esophageal reflux disease without esophagitis; Z79.01 Long term (current) use of anticoagulants; Z95.2 Presence of prosthetic heart valve; I25.10 Atherosclerotic heart disease of native coronary artery without angina pectoris; Z95.1 Presence of aortocoronary bypass graft; J44.9 Chronic obstructive pulmonary disease, unspecified; Z87.81 Personal history of (healed) traumatic fracture; Z79.82 Long term (current) use of aspirin; Z79.899 Other long term (current) drug therapy; Z88.1 Allergy status to other antibiotic agents; Z88.8 Allergy status to other drugs, medicaments and biological substances
CPT/HCPCS: 0241U; 36415; 71045; 80053; 80069; 81001; 82947; 83735; 83880; 84484; 85025; 93005; 93010; 94640; 94660; 94761; 94762; 96374; 99285-25; A9270; J1815; J1940; J2930; J7626

== ENCOUNTER 2021-07-09 09:24 | Inpatient (IN) | payer OTHER ==
[~2021-07-09] VITALS: Ht 188 cm; Wt 99.3 kg
[~2021-07-09 09:24] MED LIST changes: +ALBU2.5V5 INH; +ALLO100 PO; +Amiodarone HCl200 MG PO; +B-121000 MC7 PO; +BUDESONIDE0.5 MG/2 M INH; +GABAPENTIN600 MG PO; +Isosorbide Mono30 MG PO; +NITROGLYCERIN0.4 M3 SL; +PRAZOSIN HCL1 M2 PO; +SENN187 PO; +SOAANZ20 MG PO; +TAMSULOSIN HCL0.4 M1 PO; +ZINC220 PO
[2021-07-09 09:44] LABS: BASOPHILS ABSOLUTE AUTO 0.05 K/mm3 (0.00-0.23); BASOPHILS PERCENT AUTO 1 % (0-2); EOSINOPHILS ABSOLUTE AUTO 0.13 K/mm3 (0.00-0.68); EOSINOPHILS PERCENT AUTO 1 % (0-6); Hematocrit 40.3 % (37.0-53.0); Hemoglobin 12.2 g/dL (13.5-17.5); IMMATURE GRAN ABSOLUTE AUTO 0.03 K/mm3 (0.00-0.10); IMMATURE GRAN PERCENT AUTO 0 % (0-1); LYMPHOCYTES ABSOLUTE AUTO 0.71 K/mm3 (0.84-5.20); LYMPHOCYTES PERCENT AUTO 7 % (21-46); MONOCYTES ABSOLUTE AUTO 0.62 K/mm3 (0.16-1.47); MONOCYTES PERCENT AUTO 7 % (4-13); Mean Corpuscular HGB Conc 30.3 g/dL (31.5-36.5); Mean Corpuscular Volume 96 fL (80-100); Mean Platelet Volume 8.6 fL (9.1-12.4); NEUTROPHILS PERCENT AUTO 84 % (41-73); Platelet Count 181 K/mm3 (150-400); RDW Coefficient Variation 16.6 % (11.7-14.2); RDW Standard Deviation 58.1 fL (35.1-46.3); White Blood Cell Count 9.54 K/mm3 (4.00-11.30)
[2021-07-09 10:02] LABS: Albumin, Blood 3.1 g/dL (3.4-5.0); Albumin/Globulin Ratio 0.7 (0.8-1.8); Bilirubin, Total 0.7 mg/dL (0.1-1.0); Bun/Creatinine Ratio 15.5 (12.0-20.0); Calcium, Blood 8.8 mg/dL (8.5-10.1); Globulin, Blood 4.5 g/dL (2.2-4.0); Potassium, Blood 4.6 mmol/L (3.5-5.5); Total Protein, Blood 7.6 g/dL (6.4-8.2)
--- NOTE | 2021-07-09 16:25 | NUR ---
PT ARRIVED TO UNIT @ THIS TIME, ABLE TO SELF TRANSFER FROM [place] TO BED. PLAN TO PERFORM ADMIT ASSESSMENT.
--- NOTE | 2021-07-09 19:54 | NUR ---
SHIFT SUMMARY PT A&O X4 AND IN PLEASENT MOOD T/O SHIFT. PT ABLE TO STAND PIVOT TRANSFER FROM GURNEY TO BED UPON ARRIVAL, VOIDING WELL IN URINAL. PT JOKING AND RELAXING IN BED T/O TIME ON UNIT. ENJOYS WATCHING [employer] MOVIES. VSS. CALL LIGHT W/IN REACH. ORIENTATED TO ROOM.
--- NOTE | 2021-07-10 04:32 | NUR ---
SHIFT SUMMARY PT PLEASANT AND COOPERATIVE. NO ACUTE CHANGES TO PT CONDITION. PT GOT HIS CPAP SET UP AND WORE IT FOR SEVERAL HOURS. PT HAD SOME DIFFICULTY FALLING ASLEEP, BUT WAS ABLE TO SLEEP SOME AFTER SOME TRAZADONE. PT HAS CALL LIGHT WITHIN HIS REACH. WILL CONTINUE TO MONITOR.
[2021-07-10 04:48] LABS: Hematocrit 38.5 % (37.0-53.0); Hemoglobin 11.7 g/dL (13.5-17.5); Mean Corpuscular HGB Conc 30.4 g/dL (31.5-36.5); Mean Corpuscular Volume 95 fL (80-100); Mean Platelet Volume 9.5 fL (9.1-12.4); Platelet Count 206 K/mm3 (150-400); RDW Coefficient Variation 16.2 % (11.7-14.2); RDW Standard Deviation 56.6 fL (35.1-46.3); Red Blood Cell Count 4.04 M/mm3 (4.30-5.90); White Blood Cell Count 7.43 K/mm3 (4.00-11.30)
[2021-07-10 05:03] LABS: Bun/Creatinine Ratio 14.6 (12.0-20.0); Calcium, Blood 9.1 mg/dL (8.5-10.1); Creatinine, Blood 1.98 mg/dL (0.60-1.20); Magnesium, Blood 1.6 mg/dL (1.6-2.4); Potassium, Blood 3.9 mmol/L (3.5-5.5)
--- NOTE | 2021-07-10 17:41 | NUR ---
DISCHARGED PT A&O X4 @ TIME OF D/C. PT PROVIDED W/ WRITTEN AND VERBAL INFO, PT VERBALIZED UNDERSTANDING. IV DC'ED. PT SPOUSE CALLED THIS RN, PT SPOUSE VERBALIZED WISHES OF AN IMMEDIATE D/C. SPOUSE INFORMED STAFF, "WE HAVE ALL THE SUPPLIES WE NEED AT HOME." PT ESCORTED TO [facility] BY [facility] VIA WC. SPOUSE @ [facility] TO PROVIDE TRANSPORT.
== END 2021-07-10 17:45 | disposition home or self-care (01) | DRG 291 ==
LOC: ER 09:24 → ERHOLD 09:25 → MEDS 09:25 → EDBEDREQ 12:34 → MEDS 16:19
PROVIDERS: Emergency Medicine; Nurse Practitioner Acute Care; ADMIT Internal Medicine
DX: I13.0 Hypertensive heart and chronic kidney disease with heart failure and stage 1 through stage 4 chronic kidney disease, or unspecified chronic kidney disease (principal); I50.23 Acute on chronic systolic (congestive) heart failure; J96.21 Acute and chronic respiratory failure with hypoxia; J44.1 Chronic obstructive pulmonary disease with (acute) exacerbation; Z66 Do not resuscitate; I48.91 Unspecified atrial fibrillation; E11.22 Type 2 diabetes mellitus with diabetic chronic kidney disease; G47.33 Obstructive sleep apnea (adult) (pediatric); K21.9 Gastro-esophageal reflux disease without esophagitis; M10.9 Gout, unspecified; F32.A Depression, unspecified; I25.10 Atherosclerotic heart disease of native coronary artery without angina pectoris; N40.0 Benign prostatic hyperplasia without lower urinary tract symptoms; D63.1 Anemia in chronic kidney disease; N18.30 Chronic kidney disease, stage 3 unspecified; Z99.89 Dependence on other enabling machines and devices; Z95.1 Presence of aortocoronary bypass graft; Z95.2 Presence of prosthetic heart valve; Z99.81 Dependence on supplemental oxygen; Z88.1 Allergy status to other antibiotic agents; Z88.8 Allergy status to other drugs, medicaments and biological substances; Z79.4 Long term (current) use of insulin; Z79.82 Long term (current) use of aspirin; Z79.899 Other long term (current) drug therapy
CPT/HCPCS: 36415; 71045; 80048; 80053; 82947; 83735; 83880; 84484; 85025; 85027; 93005; 93010; 94640; 94660; 94664; 94760; 94761; 96374; 96376; 99285-25; A9270; G0378; J1815; J1940

== ENCOUNTER 2021-07-23 20:20 | Emergency (ER) | payer OTHER ==
[~2021-07-23] VITALS: Ht 185.4 cm; Wt 89.4 kg
[2021-07-23 20:50] LABS: BASOPHILS ABSOLUTE AUTO 0.05 K/mm3 (0.00-0.23); BASOPHILS PERCENT AUTO 1 % (0-2); EOSINOPHILS ABSOLUTE AUTO 0.38 K/mm3 (0.00-0.68); EOSINOPHILS PERCENT AUTO 4 % (0-6); Hematocrit 41.7 % (37.0-53.0); Hemoglobin 12.6 g/dL (13.5-17.5); IMMATURE GRAN ABSOLUTE AUTO 0.03 K/mm3 (0.00-0.10); IMMATURE GRAN PERCENT AUTO 0 % (0-1); LYMPHOCYTES ABSOLUTE AUTO 1.44 K/mm3 (0.84-5.20); LYMPHOCYTES PERCENT AUTO 16 % (21-46); MONOCYTES ABSOLUTE AUTO 0.62 K/mm3 (0.16-1.47); MONOCYTES PERCENT AUTO 7 % (4-13); Mean Corpuscular HGB 28.9 pg (26.0-34.0); Mean Corpuscular HGB Conc 30.2 g/dL (31.5-36.5); Mean Corpuscular Volume 96 fL (80-100); Mean Platelet Volume 9.1 fL (9.1-12.4); NEUTROPHILS ABSOLUTE AUTO 6.76 K/mm3 (1.96-9.15); NEUTROPHILS PERCENT AUTO 73 % (41-73); Platelet Count 192 K/mm3 (150-400); RDW Coefficient Variation 15.9 % (11.7-14.2); RDW Standard Deviation 56.9 fL (35.1-46.3); Red Blood Cell Count 4.36 M/mm3 (4.30-5.90); White Blood Cell Count 9.28 K/mm3 (4.00-11.30)
[2021-07-23 21:10] LABS: Albumin, Blood 2.9 g/dL (3.4-5.0); Albumin/Globulin Ratio 0.7 (0.8-1.8); Bilirubin, Total 0.4 mg/dL (0.1-1.0); Bun/Creatinine Ratio 19.4 (12.0-20.0); Calcium, Blood 8.2 mg/dL (8.5-10.1); Creatinine, Blood 3.25 mg/dL (0.60-1.20); Globulin, Blood 4.1 g/dL (2.2-4.0); Potassium, Blood 4.5 mmol/L (3.5-5.5)
[2021-07-23 21:46] LABS: Source, Urine Clean Catch
[2021-07-23 21:53] LABS: Bilirubin, Urine Neg (Neg); Blood, Urine 5+ (Neg); Glucose Qualitative, Urine Neg (Neg); Ketones, Urine Neg (Neg); Leukocyte Esterase, Urine Neg (Neg); Nitrite, Urine Neg (Neg); Protein, Urine 1+ (Neg); Specific Gravity, Urine 1.015 (1.003-1.022); Urobilinogen, Urine NORM (Normal)
[2021-07-23 22:00] LABS: Appearance, Urine Clear (Clear); Bacteria Rare /hpf; Color, Urine Yellow (P-Yellow); Red Blood Cells, Urine 25-50 /hpf (0-2); Squamous Epithelial Cells Rare /hpf (Few); White Blood Cells, Urine Rare /hpf (0-5)
[2021-07-23] MEDS ORDERED: Miralax17 GM PO (22:21)
[2021-07-24 00:09] LABS: Bun/Creatinine Ratio 20.5 (12.0-20.0); Calcium, Blood 7.8 mg/dL (8.5-10.1); Creatinine, Blood 3.08 mg/dL (0.60-1.20); Potassium, Blood 5.3 mmol/L (3.5-5.5)
== END 2021-07-24 00:30 | disposition home or self-care (01) ==
LOC: ER 20:20
PROVIDERS: Emergency Medicine; Physician Assistant
DX: N17.9 Acute kidney failure, unspecified (principal); R33.9 Retention of urine, unspecified; K59.00 Constipation, unspecified; I13.0 Hypertensive heart and chronic kidney disease with heart failure and stage 1 through stage 4 chronic kidney disease, or unspecified chronic kidney disease; E11.22 Type 2 diabetes mellitus with diabetic chronic kidney disease; N18.9 Chronic kidney disease, unspecified; I50.9 Heart failure, unspecified; I48.91 Unspecified atrial fibrillation; I25.10 Atherosclerotic heart disease of native coronary artery without angina pectoris; K21.9 Gastro-esophageal reflux disease without esophagitis; Z88.0 Allergy status to penicillin; Z88.2 Allergy status to sulfonamides; Z88.8 Allergy status to other drugs, medicaments and biological substances; Z79.82 Long term (current) use of aspirin; Z79.4 Long term (current) use of insulin; Z79.899 Other long term (current) drug therapy; Z87.891 Personal history of nicotine dependence
CPT/HCPCS: 36415; 51702; 51798; 74018; 80048; 80053; 81001; 85025; 99284-25; A9270

== ENCOUNTER 2021-07-27 23:22 | Emergency (ER) | payer OTHER ==
[~2021-07-27] VITALS: Ht 182.9 cm; Wt 81.7 kg
[~2021-07-27 23:22] MED LIST changes: +Miralax17 GM PO
[2021-07-27 23:47] LABS: Source, Urine Foley catheter
[2021-07-27 23:57] LABS: Bilirubin, Urine Neg (Neg); Blood, Urine 5+ (Neg); Glucose Qualitative, Urine Neg (Neg); Ketones, Urine Neg (Neg); Leukocyte Esterase, Urine Neg (Neg); Nitrite, Urine Neg (Neg); Protein, Urine Neg (Neg); Urobilinogen, Urine NORM (Normal)
[2021-07-28 00:12] LABS: Appearance, Urine Clear (Clear); Color, Urine Yellow (P-Yellow)
[2021-07-28 00:13] LABS: Bacteria Not Seen /hpf; Red Blood Cells, Urine 25-50 /hpf (0-2); Squamous Epithelial Cells Not Seen /hpf (Few); White Blood Cells, Urine Not Seen /hpf (0-5)
[2021-07-28 00:20] LABS: Calcium, Ionized (POC) 1.01 mmol/L (1.10-1.46); Chloride (POC) 104 mmol/L (98-108); Creatinine (POC) 2.5 mg/dL (0.8-1.3); Glucose (ISTAT POC) 208 mg/dL (70-99); Hemoglobin (POC) 12.9 g/dL (13.5-17.5); Potassium (POC) 5.2 mmol/L (3.5-5.5); Sodium (POC) 140 mmol/L (135-148); Total CO2 (POC) 26 mmol/L (21-32)
== END 2021-07-28 01:03 | disposition home or self-care (01) ==
LOC: ER 23:22
PROVIDERS: Student in an Organized Health Care Education/Training Program
DX: R33.9 Retention of urine, unspecified (principal); I13.0 Hypertensive heart and chronic kidney disease with heart failure and stage 1 through stage 4 chronic kidney disease, or unspecified chronic kidney disease; E11.22 Type 2 diabetes mellitus with diabetic chronic kidney disease; N18.9 Chronic kidney disease, unspecified; I50.9 Heart failure, unspecified; I48.91 Unspecified atrial fibrillation; G47.30 Sleep apnea, unspecified; I25.10 Atherosclerotic heart disease of native coronary artery without angina pectoris; K21.9 Gastro-esophageal reflux disease without esophagitis; Z79.899 Other long term (current) drug therapy; Z79.01 Long term (current) use of anticoagulants; Z79.4 Long term (current) use of insulin; Z79.82 Long term (current) use of aspirin; Z88.8 Allergy status to other drugs, medicaments and biological substances; Z96.0 Presence of urogenital implants
CPT/HCPCS: 51702; 80047; 81001; 85014

== ENCOUNTER 2021-08-06 10:35 | Emergency (ER) | payer OTHER ==
[~2021-08-06] VITALS: Ht 185.4 cm; Wt 95.2 kg
[2021-08-06 11:45] LABS: BASOPHILS ABSOLUTE AUTO 0.04 K/mm3 (0.00-0.23); BASOPHILS PERCENT AUTO 0 % (0-2); EOSINOPHILS PERCENT AUTO 2 % (0-6); Hematocrit 41.9 % (37.0-53.0); Hemoglobin 12.7 g/dL (13.5-17.5); IMMATURE GRAN ABSOLUTE AUTO 0.02 K/mm3 (0.00-0.10); IMMATURE GRAN PERCENT AUTO 0 % (0-1); LYMPHOCYTES PERCENT AUTO 11 % (21-46); MONOCYTES ABSOLUTE AUTO 0.49 K/mm3 (0.16-1.47); MONOCYTES PERCENT AUTO 5 % (4-13); Mean Corpuscular HGB 29.1 pg (26.0-34.0); Mean Corpuscular HGB Conc 30.3 g/dL (31.5-36.5); Mean Corpuscular Volume 96 fL (80-100); Mean Platelet Volume 8.9 fL (9.1-12.4); NEUTROPHILS ABSOLUTE AUTO 7.72 K/mm3 (1.96-9.15); NEUTROPHILS PERCENT AUTO 82 % (41-73); Platelet Count 211 K/mm3 (150-400); RDW Coefficient Variation 16.3 % (11.7-14.2); RDW Standard Deviation 57.1 fL (35.1-46.3); Red Blood Cell Count 4.37 M/mm3 (4.30-5.90); White Blood Cell Count 9.47 K/mm3 (4.00-11.30)
[2021-08-06 12:03] LABS: Albumin/Globulin Ratio 0.6 (0.8-1.8); Bilirubin, Total 0.4 mg/dL (0.1-1.0); Bun/Creatinine Ratio 20.7 (12.0-20.0); Calcium, Blood 9.2 mg/dL (8.5-10.1); Creatinine, Blood 2.22 mg/dL (0.60-1.20); Globulin, Blood 4.8 g/dL (2.2-4.0); Potassium, Blood 4.6 mmol/L (3.5-5.5); Total Protein, Blood 7.8 g/dL (6.4-8.2)
[2021-08-06 14:10] LABS: Source, Urine Clean Catch
[2021-08-06 14:31] LABS: Appearance, Urine Cloudy (Clear); Bilirubin, Urine Neg (Neg); Blood, Urine 5+ (Neg); Color, Urine Amber (P-Yellow); Glucose Qualitative, Urine Neg (Neg); Ketones, Urine Neg (Neg); Leukocyte Esterase, Urine 3+ (Neg); Nitrite, Urine Neg (Neg); Protein, Urine 2+ (Neg); Specific Gravity, Urine 1.015 (1.003-1.022); Urobilinogen, Urine NORM (Normal)
[2021-08-06 14:41] LABS: Hyaline Casts Rare /lpf (0-2)
[2021-08-06 14:42] LABS: Red Blood Cells, Urine 50-100 /hpf (0-2); White Blood Cells, Urine 50-100 /hpf (0-5)
[2021-08-06 14:43] LABS: Bacteria Many /hpf; Squamous Epithelial Cells Rare /hpf (Few)
[2021-08-06 15:38] LABS: Source, Urine Foley catheter
[2021-08-06 15:43] LABS: Appearance, Urine Cloudy (Clear); Bilirubin, Urine Neg (Neg); Blood, Urine 5+ (Neg); Color, Urine Amber (P-Yellow); Glucose Qualitative, Urine Neg (Neg); Ketones, Urine Neg (Neg); Leukocyte Esterase, Urine 3+ (Neg); Nitrite, Urine Neg (Neg); Protein, Urine 2+ (Neg); Urobilinogen, Urine NORM (Normal)
[2021-08-06 16:02] LABS: Bacteria Many /hpf; Red Blood Cells, Urine TNTC /hpf (0-2)
[2021-08-06 16:03] LABS: Squamous Epithelial Cells Few /hpf (Few)
[2021-08-06] MEDS ORDERED: MECL25 PO (17:30)
== END 2021-08-06 18:12 | disposition home or self-care (01) ==
LOC: ER 10:35
PROVIDERS: Physician Assistant; Student in an Organized Health Care Education/Training Program
DX: E86.0 Dehydration (principal); R79.89 Other specified abnormal findings of blood chemistry; K21.9 Gastro-esophageal reflux disease without esophagitis; E11.22 Type 2 diabetes mellitus with diabetic chronic kidney disease; I13.0 Hypertensive heart and chronic kidney disease with heart failure and stage 1 through stage 4 chronic kidney disease, or unspecified chronic kidney disease; N18.9 Chronic kidney disease, unspecified; I50.9 Heart failure, unspecified; Z79.899 Other long term (current) drug therapy; Z88.8 Allergy status to other drugs, medicaments and biological substances
CPT/HCPCS: 36415; 51702; 70450; 70496; 70498; 80053; 81001; 85025; 87077; 87086; 87186; 93005; 93010; 99284-25; A9270; J7030; Q9967

== ENCOUNTER → 2022-01-24 | Outpatient (CLI) | payer OTHER ==
[~2022-01-24] MED LIST changes: +GLUCOSE4 GM PO; +MECL25 PO; +MICONAZOLE NIT130 GM TOP; +MIDODRINE HCL10 M9 PO; +MIRT30ST PO; +ONDA4 PO; +TOPROL XL25 MG PO
[2022-01-24 10:53] LABS: BASOPHILS ABSOLUTE AUTO 0.11 K/mm3 (0.00-0.23); BASOPHILS PERCENT AUTO 1 % (0-2); EOSINOPHILS PERCENT AUTO 6 % (0-6); Hematocrit 37.5 % (37.0-53.0); Hemoglobin 11.3 g/dL (13.5-17.5); IMMATURE GRAN ABSOLUTE AUTO 0.02 K/mm3 (0.00-0.10); IMMATURE GRAN PERCENT AUTO 0 % (0-1); LYMPHOCYTES ABSOLUTE AUTO 1.35 K/mm3 (0.84-5.20); LYMPHOCYTES PERCENT AUTO 16 % (21-46); MONOCYTES PERCENT AUTO 7 % (4-13); Mean Corpuscular HGB 30.1 pg (26.0-34.0); Mean Corpuscular HGB Conc 30.1 g/dL (31.5-36.5); Mean Corpuscular Volume 100 fL (80-100); Mean Platelet Volume 8.6 fL (9.1-12.4); NEUTROPHILS ABSOLUTE AUTO 5.75 K/mm3 (1.96-9.15); NEUTROPHILS PERCENT AUTO 69 % (41-73); Platelet Count 191 K/mm3 (150-400); RDW Coefficient Variation 16.7 % (11.7-14.2); RDW Standard Deviation 61.9 fL (35.1-46.3); Red Blood Cell Count 3.76 M/mm3 (4.30-5.90); White Blood Cell Count 8.33 K/mm3 (4.00-11.30)
[2022-01-24 11:02] LABS: Albumin, Blood 3.2 g/dL (3.4-5.0); Albumin/Globulin Ratio 0.6 (0.8-1.8); Bilirubin, Total 0.5 mg/dL (0.1-1.0); Bun/Creatinine Ratio 11.8 (12.0-20.0); Calcium, Blood 8.2 mg/dL (8.5-10.1); Creatinine, Blood 6.29 mg/dL (0.60-1.20); Globulin, Blood 5.2 g/dL (2.2-4.0); Total Protein, Blood 8.4 g/dL (6.4-8.2)
== END | disposition home or self-care (01) ==
LOC: LAB SHORT 10:47 → LAB 10:47
PROVIDERS: Chiropractor
DX: R19.5 Other fecal abnormalities (principal)
CPT/HCPCS: 80053; 85025

== ENCOUNTER 2022-05-31 21:23 | Inpatient (IN) | payer OTHER ==
[2022-05-31 21:59] LABS: BASOPHILS ABSOLUTE AUTO 0.08 K/mm3 (0.00-0.23); BASOPHILS PERCENT AUTO 1 % (0-2); EOSINOPHILS ABSOLUTE AUTO 0.14 K/mm3 (0.00-0.68); EOSINOPHILS PERCENT AUTO 1 % (0-6); Hematocrit 39.5 % (37.0-53.0); Hemoglobin 12.1 g/dL (13.5-17.5); IMMATURE GRAN ABSOLUTE AUTO 0.08 K/mm3 (0.00-0.10); IMMATURE GRAN PERCENT AUTO 1 % (0-1); LYMPHOCYTES ABSOLUTE AUTO 0.75 K/mm3 (0.84-5.20); LYMPHOCYTES PERCENT AUTO 7 % (21-46); MONOCYTES ABSOLUTE AUTO 0.49 K/mm3 (0.16-1.47); MONOCYTES PERCENT AUTO 4 % (4-13); Mean Corpuscular HGB 31.1 pg (26.0-34.0); Mean Corpuscular HGB Conc 30.6 g/dL (31.5-36.5); Mean Corpuscular Volume 102 fL (80-100); Mean Platelet Volume 9.1 fL (9.1-12.4); NEUTROPHILS ABSOLUTE AUTO 9.85 K/mm3 (1.96-9.15); NEUTROPHILS PERCENT AUTO 87 % (41-73); Platelet Count 199 K/mm3 (150-400); RDW Coefficient Variation 17.9 % (11.7-14.2); RDW Standard Deviation 67.1 fL (35.1-46.3); Red Blood Cell Count 3.89 M/mm3 (4.30-5.90); White Blood Cell Count 11.39 K/mm3 (4.00-11.30)
[2022-05-31 22:10] LABS: Albumin, Blood 2.5 g/dL (3.4-5.0); Albumin/Globulin Ratio 0.5 (0.8-1.8); Bilirubin, Total 0.4 mg/dL (0.1-1.0); Bun/Creatinine Ratio 7.5 (12.0-20.0); Calcium, Blood 8.7 mg/dL (8.5-10.1); Creatinine, Blood 5.61 mg/dL (0.60-1.20); Globulin, Blood 4.8 g/dL (2.2-4.0); Potassium, Blood 4.6 mmol/L (3.5-5.5); Total Protein, Blood 7.3 g/dL (6.4-8.2)
--- NOTE | 2022-06-01 04:07 | NUR ---
PATIENT IS A NEW ADMIT FROM THE ED. AXO X4 AND THREE PERSON TRANSFER FROM [facility] TO BED. DENIES CHEST PAIN, SOB, AND N/V. ON 5L O2 NC AND IS HIS BASELINE. REPORTS LIVES WITH SPOUSE IN [place]. PERITONEAL DIALYSIS CATHETER. PIV REMAINS INTACT. CONSENT TO PHOTOGRAPH SIGNED AND IN CHART. RIGHT ANKLE WOUNDS PHOTOGRAPH AND IN CHART BY CHARGE GAYE HENAO PRESENT ON ADMIT FROM ED. VSS/AFEBRILE. ORIENTED TO ROOM AND CALL LIGHT SYSTEM. RESTING IN BED AFTER ADMIT. CALL LIGHT IN REACH. WCTM.
[2022-06-01 04:23] LABS: BASOPHILS ABSOLUTE AUTO 0.06 K/mm3 (0.00-0.23); BASOPHILS PERCENT AUTO 1 % (0-2); EOSINOPHILS ABSOLUTE AUTO 0.12 K/mm3 (0.00-0.68); EOSINOPHILS PERCENT AUTO 1 % (0-6); Hemoglobin 11.2 g/dL (13.5-17.5); IMMATURE GRAN ABSOLUTE AUTO 0.06 K/mm3 (0.00-0.10); IMMATURE GRAN PERCENT AUTO 1 % (0-1); LYMPHOCYTES ABSOLUTE AUTO 0.89 K/mm3 (0.84-5.20); LYMPHOCYTES PERCENT AUTO 9 % (21-46); MONOCYTES ABSOLUTE AUTO 0.46 K/mm3 (0.16-1.47); MONOCYTES PERCENT AUTO 5 % (4-13); Mean Corpuscular HGB 30.8 pg (26.0-34.0); Mean Corpuscular HGB Conc 30.3 g/dL (31.5-36.5); Mean Corpuscular Volume 102 fL (80-100); Mean Platelet Volume 8.7 fL (9.1-12.4); NEUTROPHILS PERCENT AUTO 83 % (41-73); Platelet Count 170 K/mm3 (150-400); RDW Coefficient Variation 17.7 % (11.7-14.2); RDW Standard Deviation 66.3 fL (35.1-46.3); Red Blood Cell Count 3.64 M/mm3 (4.30-5.90); White Blood Cell Count 9.49 K/mm3 (4.00-11.30)
[2022-06-01 04:53] LABS: Bun/Creatinine Ratio 7.5 (12.0-20.0); Calcium, Blood 8.2 mg/dL (8.5-10.1); Creatinine, Blood 5.71 mg/dL (0.60-1.20); Potassium, Blood 4.7 mmol/L (3.5-5.5)
--- NOTE | 2022-06-01 06:18 | NUR ---
PROVIDER CONSULT CALLED INTO DR EVERETT ([facility]) ANSWERING SERVICE FOR DIALYSIS MANAGEMENT.
--- NOTE | 2022-06-01 18:11 | NUR ---
SHIFT SUMMARY PATIENT IS ALERT AND ORIENTED. PATIENT HAS HAD NO ACUTE EVENTS THIS SHIFT. VITAL SIGNS REVIEWED. PATIENT HAS HAD DIALYSIS TODAY WITHOUT INCIDENT AND HAD 2L TAKEN OFF. PATIENT HAS NOT COMPLAINED OF PAIN, NAUSEA, SOB OR VOMITTING THIS SHIFT. PATIENT REMAINS ON BASELINE O2. BED IN LOCKED AND LOWEST POSITION. CALL LIGHT IN PLACE. WILL MONITOR UNTIL SHIFT CHANGE.
[2022-06-02 02:58] LABS: Source, Urine Foley catheter
[2022-06-02 03:01] LABS: Bilirubin, Urine Neg (Neg); Blood, Urine 5+ (Neg); Glucose Qualitative, Urine Neg (Neg); Ketones, Urine 1+ (Neg); Leukocyte Esterase, Urine 3+ (Neg); Nitrite, Urine Neg (Neg); Protein, Urine 4+ (Neg); Urobilinogen, Urine NORM (Normal)
[2022-06-02 03:25] LABS: Appearance, Urine Turbid (Clear); Color, Urine Yellow (P-Yellow)
[2022-06-02 03:32] LABS: Amorphous Light (0-Heavy); Bacteria Many /hpf; Squamous Epithelial Cells Not Seen /hpf (Few); White Blood Cells, Urine TNTC /hpf (0-5)
--- NOTE | 2022-06-02 05:24 | NUR ---
SUMMARY: NO ACUTE EVENTS OVERNIGHT. PATIENT HENAO CATH EXCHANGED PER HOSPITAL POLICY AND UA SENT. PATIENT TOLERATED WELL. URINE DID HAVE A FOUL ODOR. VSS. PATIENT ON NASAL CANNULA. CALL LIGHT IN REACH.
[2022-06-02 05:46] LABS: Albumin, Blood 2.6 g/dL (3.4-5.0); Anion Gap 6 mmol/L (6-16); Blood Urea Nitrogen 32 mg/dL (8-24); Bun/Creatinine Ratio 7.3 (12.0-20.0); CO2, Blood 31 mmol/L (21-32); Calcium, Blood 8.5 mg/dL (8.5-10.1); Chloride, Blood 97 mmol/L (98-108); Creatinine, Blood 4.41 mg/dL (0.60-1.20); Glomerular Filtration Rate 13 (60-); Glucose, Blood 154 mg/dL (70-99); Phosphorus, Blood 3.8 mg/dL (2.5-4.9); Sodium, Blood 134 mmol/L (136-145)
--- NOTE | 2022-06-02 07:17 | NUR ---
ASSUMED CARE: PT RESTING IN BED, 5L NC IN PLACE. NO ACUTE NEEDS OR CONCERNS AT THIS TIME.
[2022-06-02] MEDS ORDERED: FURO40 PO (09:57)
--- NOTE | 2022-06-02 10:10 | NUR ---
DIALYSIS NURSE AT BEDSIDE PLACING CAP TO PD CATHETER AT THIS TIME.
--- NOTE | 2022-06-02 10:24 | NUR ---
DIALYSIS NOTE PER MD ORDER TRANSFER SET REMOVED AND PD CATH CAPPED USING STERILE TECHNIQUE. EXIT SITE CARE AND DRSG CHANGE PROVIDED. EXIT SITE IN PERFECT CONDITION, PT TOLERATED WELL.
--- NOTE | 2022-06-02 10:37 | NUR ---
DR TOLENTINO CAME TO SEE PT AND ADVISED THAT HE STAY FOR ANOTHER DAY. PT REFUSED AND WAS ADAMANT THAT HE BE DISCHARGED TODAY DUE TO A PODIATRY APPOINTMENT AT 11AM. INFORMED PT THAT WE HAVE RESOURCES AND OPTIONS TO HELP HIM HERE BUT PT REFUSED. DISCHARGE ORDERS WRITTEN AND INSTRUCTIONS PROVIDED REGARDING FOLLOW UP APPOINTMENTS AND NEW MEDICATIONS. IV DC'D WNL. PT ESCORTED OUT VIA WHEEL CHAIR BY HOSPITAL STAFF
== END 2022-06-02 10:31 | disposition home or self-care (01) | DRG 291 ==
LOC: ER 21:23 → MEDS 23:55
PROVIDERS: Emergency Medicine; Internal Medicine Nephrology; ADMIT Hospitalist
PROC: 5A09357 Assistance with Respiratory Ventilation, Less than 24 Consecutive Hours, Continuous Positive Airway Pressure (ICD-10-PCS; principal; 2022-05-31)
PROC: 0T2BX0Z Change Drainage Device in Bladder, External Approach (ICD-10-PCS; 2022-05-31)
PROC: 5A1D70Z Performance of Urinary Filtration, Intermittent, Less than 6 Hours Per Day (ICD-10-PCS; 2022-06-01)
DX: I13.2 Hypertensive heart and chronic kidney disease with heart failure and with stage 5 chronic kidney disease, or end stage renal disease (principal); I50.23 Acute on chronic systolic (congestive) heart failure; J96.21 Acute and chronic respiratory failure with hypoxia; N18.6 End stage renal disease; I48.91 Unspecified atrial fibrillation; Z66 Do not resuscitate; E11.22 Type 2 diabetes mellitus with diabetic chronic kidney disease; N28.89 Other specified disorders of kidney and ureter; J44.9 Chronic obstructive pulmonary disease, unspecified; I25.10 Atherosclerotic heart disease of native coronary artery without angina pectoris; I34.0 Nonrheumatic mitral (valve) insufficiency; R82.71 Bacteriuria; M48.02 Spinal stenosis, cervical region; K21.9 Gastro-esophageal reflux disease without esophagitis; G47.33 Obstructive sleep apnea (adult) (pediatric); N40.0 Benign prostatic hyperplasia without lower urinary tract symptoms; E78.5 Hyperlipidemia, unspecified; M10.9 Gout, unspecified; F32.A Depression, unspecified; Z91.15 Patient's noncompliance with renal dialysis; Z95.2 Presence of prosthetic heart valve; Z88.1 Allergy status to other antibiotic agents; Z88.8 Allergy status to other drugs, medicaments and biological substances; Z79.4 Long term (current) use of insulin; Z79.899 Other long term (current) drug therapy; Z99.2 Dependence on renal dialysis; Z95.1 Presence of aortocoronary bypass graft; Z79.02 Long term (current) use of antithrombotics/antiplatelets; Z79.51 Long term (current) use of inhaled steroids; Z79.52 Long term (current) use of systemic steroids; Z95.5 Presence of coronary angioplasty implant and graft; Z99.81 Dependence on supplemental oxygen
CPT/HCPCS: 36415; 71045; 80048; 80053; 80069; 81001; 82947; 83880; 84484; 85025; 87077; 87086; 87186; 93005; 93010; 94640; 94664; 94760; 94762; 96374; 99285-25; A9270; J0696; J1650; J1815; J1940; P9046

== ENCOUNTER → 2022-08-07 | Outpatient (CLI) | payer OTHER ==
[2022-08-07 13:16] LABS: Hematocrit 47.1 % (37.0-53.0); Hemoglobin 14.4 g/dL (13.5-17.5); Mean Corpuscular HGB 31.4 pg (26.0-34.0); Mean Corpuscular HGB Conc 30.6 g/dL (31.5-36.5); Mean Corpuscular Volume 103 fL (80-100); Mean Platelet Volume 8.9 fL (9.1-12.4); Platelet Count 119 K/mm3 (150-400); RDW Coefficient Variation 16.1 % (11.7-14.2); RDW Standard Deviation 61.3 fL (35.1-46.3); Red Blood Cell Count 4.59 M/mm3 (4.30-5.90); White Blood Cell Count 4.68 K/mm3 (4.00-11.30)
[2022-08-07 14:48] LABS: BAND PERCENT MAN 3 % (0-8); BASOPHILS PERCENT MAN 0 % (0-2); EOSINOPHILS ABSOLUTE MAN 0.04 K/mm3 (0.00-0.68); EOSINOPHILS PERCENT MAN 1 % (0-6); LYMPHOCYTES ABSOLUTE MAN 0.79 K/mm3 (0.84-5.20); LYMPHOCYTES PERCENT MAN 17 % (21-46); MONOCYTES ABSOLUTE MAN 0.32 K/mm3 (0.16-1.47); MONOCYTES PERCENT MAN 7 % (4-13); NEUTROPHILS ABSOLUTE MAN 3.51 K/mm3 (1.96-9.15); SEG NEUTROPHILS PERCENT MAN 72 % (41-73); TOTAL CELLS COUNTED 100
[2022-08-07 15:44] LABS: Bun/Creatinine Ratio 6.5 (12.0-20.0); Calcium, Blood 8.1 mg/dL (8.5-10.1); Creatinine, Blood 2.46 mg/dL (0.60-1.20); Potassium, Blood 3.7 mmol/L (3.5-5.5)
[2022-08-07 15:57] LABS: International Normalized Ratio 1.03; Prothrombin Time Results 10.8 Sec (9.7-11.5)
== END | disposition home or self-care (01) ==
LOC: LAB 12:02 → LAB SHORT 12:02
PROVIDERS: Physician Assistant
DX: N18.6 End stage renal disease (principal)
CPT/HCPCS: 36415; 80048; 85007; 85027; 85610

== ENCOUNTER 2022-10-14 07:26 | Emergency (ER) | payer OTHER ==
[~2022-10-14] VITALS: Ht 172.7 cm; Wt 98.4 kg
[2022-10-14 08:09] LABS: BASOPHILS ABSOLUTE AUTO 0.11 K/mm3 (0.00-0.23); BASOPHILS PERCENT AUTO 2 % (0-2); EOSINOPHILS ABSOLUTE AUTO 0.25 K/mm3 (0.00-0.68); EOSINOPHILS PERCENT AUTO 3 % (0-6); Hematocrit 48.3 % (37.0-53.0); Hemoglobin 15.5 g/dL (13.5-17.5); IMMATURE GRAN ABSOLUTE AUTO 0.03 K/mm3 (0.00-0.10); IMMATURE GRAN PERCENT AUTO 0 % (0-1); LYMPHOCYTES PERCENT AUTO 15 % (21-46); MONOCYTES ABSOLUTE AUTO 0.74 K/mm3 (0.16-1.47); MONOCYTES PERCENT AUTO 10 % (4-13); Mean Corpuscular HGB 32.2 pg (26.0-34.0); Mean Corpuscular HGB Conc 32.1 g/dL (31.5-36.5); Mean Corpuscular Volume 100 fL (80-100); Mean Platelet Volume 9.1 fL (9.1-12.4); NEUTROPHILS ABSOLUTE AUTO 5.08 K/mm3 (1.96-9.15); NEUTROPHILS PERCENT AUTO 70 % (41-73); Platelet Count 167 K/mm3 (150-400); RDW Coefficient Variation 16.5 % (11.7-14.2); RDW Standard Deviation 60.8 fL (35.1-46.3); Red Blood Cell Count 4.82 M/mm3 (4.30-5.90); White Blood Cell Count 7.31 K/mm3 (4.00-11.30)
[2022-10-14 08:43] LABS: Albumin, Blood 2.6 g/dL (3.4-5.0); Albumin/Globulin Ratio 0.5 (0.8-1.8); Bilirubin, Total 0.8 mg/dL (0.1-1.0); Bun/Creatinine Ratio 8.2 (12.0-20.0); Calcium, Blood 8.5 mg/dL (8.5-10.1); Creatinine, Blood 5.72 mg/dL (0.60-1.20); Potassium, Blood 5.6 mmol/L (3.5-5.5); Total Protein, Blood 7.6 g/dL (6.4-8.2)
[2022-10-14 11:00] VITALS: BP 102/62
[2022-10-14 11:22] LABS: Source, Urine Foley catheter
[2022-10-14 11:31] LABS: Bilirubin, Urine Neg (Neg); Blood, Urine 5+ (Neg); Glucose Qualitative, Urine Neg (Neg); Ketones, Urine 1+ (Neg); Leukocyte Esterase, Urine 3+ (Neg); Nitrite, Urine Neg (Neg); Protein, Urine 3+ (Neg); Specific Gravity, Urine 1.015 (1.003-1.022); Urobilinogen, Urine NORM (Normal)
[2022-10-14 12:01] LABS: Appearance, Urine Hazy (Clear); Color, Urine Yellow (P-Yellow)
[2022-10-14 12:03] LABS: Red Blood Cells, Urine 25-50 /hpf (0-2); White Blood Cells, Urine 25-50 /hpf (0-5)
[2022-10-14 12:04] LABS: Bacteria Many /hpf; Squamous Epithelial Cells Few /hpf (Few)
== END 2022-10-14 11:02 | disposition home or self-care (01) ==
LOC: ER 07:26
PROVIDERS: Emergency Medicine
DX: I13.2 Hypertensive heart and chronic kidney disease with heart failure and with stage 5 chronic kidney disease, or end stage renal disease (principal); E11.22 Type 2 diabetes mellitus with diabetic chronic kidney disease; N18.6 End stage renal disease; I50.20 Unspecified systolic (congestive) heart failure; R53.83 Other fatigue; J44.9 Chronic obstructive pulmonary disease, unspecified; Z79.899 Other long term (current) drug therapy; Z99.81 Dependence on supplemental oxygen; I25.10 Atherosclerotic heart disease of native coronary artery without angina pectoris; K21.9 Gastro-esophageal reflux disease without esophagitis; Z99.2 Dependence on renal dialysis; Z88.1 Allergy status to other antibiotic agents; Z88.8 Allergy status to other drugs, medicaments and biological substances; Z79.51 Long term (current) use of inhaled steroids; Z79.01 Long term (current) use of anticoagulants; Z79.4 Long term (current) use of insulin; Z79.52 Long term (current) use of systemic steroids; G47.33 Obstructive sleep apnea (adult) (pediatric)
CPT/HCPCS: 51702; 71045; 80053; 81001; 84484; 85025; 93005; 93010; J7030

== ENCOUNTER 2022-12-17 13:21 | Inpatient (IN) | payer OTHER ==
[~2022-12-17] VITALS: Ht 185.4 cm; Wt 88.4 kg
[~2022-12-17 13:21] MED LIST changes: +Amoxicillin500 MG PO; +CALCIUM CARBON500 M1 PO; +Cefpodoxime Pr100 MG PO; +ERGO50000 PO; +EUTHYROX50 MCG PO; +MICO100S TOP; +MIDO5 PO; +MIRT15 PO; +NALOXONE H0.4 MG/11 INH; +Pyridium100 MG PO; +VANCOCIN HCL125 MG PO; +VISBIOME 112.51 EACH PO
[2022-12-17 15:15] LABS: Albumin, Blood 2.7 g/dL (3.4-5.0); Albumin/Globulin Ratio 0.5 (0.8-1.8); Bilirubin, Total 0.8 mg/dL (0.1-1.0); Calcium, Blood 9.1 mg/dL (8.5-10.1); Creatinine, Blood 5.77 mg/dL (0.60-1.20); Magnesium, Blood 2.5 mg/dL (1.6-2.4); Phosphorus, Blood 4.8 mg/dL (2.5-4.9); Potassium, Blood 5.3 mmol/L (3.5-5.5); Total Protein, Blood 7.7 g/dL (6.4-8.2)
[2022-12-17 16:26] LABS: Source, Urine Foley catheter
[2022-12-17 17:21] LABS: Appearance, Urine Turbid (Clear); Bilirubin, Urine Neg (Neg); Blood, Urine 5+ (Neg); Color, Urine Yellow (P-Yellow); Glucose Qualitative, Urine Neg (Neg); Ketones, Urine Neg (Neg); Leukocyte Esterase, Urine 3+ (Neg); Nitrite, Urine Neg (Neg); Protein, Urine 4+ (Neg); Specific Gravity, Urine 1.015 (1.003-1.022); Urobilinogen, Urine NORM (Normal); pH, Urine 6.5 (5.0-8.0)
[2022-12-17 17:36] LABS: Red Blood Cells, Urine TNTC /hpf (0-2); White Blood Cells, Urine TNTC /hpf (0-5)
[2022-12-17 17:38] LABS: Bacteria Many /hpf; Hyaline Casts 0-2 /lpf (0-2); Squamous Epithelial Cells Few /hpf (Few); WBC Cast 0-2 /lpf (0); Yeast/Fungi Urine Many /hpf
[2022-12-17 18:09] LABS: BASOPHILS ABSOLUTE AUTO 0.12 K/mm3 (0.00-0.23); BASOPHILS PERCENT AUTO 1 % (0-2); EOSINOPHILS PERCENT AUTO 2 % (0-6); Hemoglobin 14.8 g/dL (13.5-17.5); IMMATURE GRAN ABSOLUTE AUTO 0.06 K/mm3 (0.00-0.10); IMMATURE GRAN PERCENT AUTO 1 % (0-1); LYMPHOCYTES ABSOLUTE AUTO 1.78 K/mm3 (0.84-5.20); LYMPHOCYTES PERCENT AUTO 16 % (21-46); MONOCYTES ABSOLUTE AUTO 1.08 K/mm3 (0.16-1.47); MONOCYTES PERCENT AUTO 10 % (4-13); Mean Corpuscular HGB 32.4 pg (26.0-34.0); Mean Corpuscular HGB Conc 31.5 g/dL (31.5-36.5); Mean Corpuscular Volume 103 fL (80-100); Mean Platelet Volume 9.1 fL (9.1-12.4); NEUTROPHILS ABSOLUTE AUTO 7.65 K/mm3 (1.96-9.15); NEUTROPHILS PERCENT AUTO 70 % (41-73); Platelet Count 119 K/mm3 (150-400); RDW Coefficient Variation 17.9 % (11.7-14.2); RDW Standard Deviation 66.4 fL (35.1-46.3); Red Blood Cell Count 4.57 M/mm3 (4.30-5.90); White Blood Cell Count 10.89 K/mm3 (4.00-11.30)
--- NOTE | 2022-12-17 19:14 | NUR ---
Careful assessment of pt looks dry tounge furrowed skin dry eyes suken. pt feels short of breath and very fatigued. Discussed dialysis tolerance. We also discussed day to day life. Had a seious talk about his large home and living situation. State he and his have been talking about moving. Relayed that waiting my compromise both their safety. We then discussed frailty and dialysis and air hunger. He is not ready nor is . Will continue to help this achive some comfort and dignity. kps score is 30%. Will speak with piano case and bench assembler for [facility] plan.
[2022-12-17 23:07] VITALS: BP 108/66
[2022-12-18] VITALS (19 sets, daily range): BP systolic 69–107; BP diastolic 44–93
[2022-12-18 04:50] LABS: BASOPHILS ABSOLUTE AUTO 0.11 K/mm3 (0.00-0.23); BASOPHILS PERCENT AUTO 1 % (0-2); EOSINOPHILS ABSOLUTE AUTO 0.34 K/mm3 (0.00-0.68); EOSINOPHILS PERCENT AUTO 3 % (0-6); Hemoglobin 14.9 g/dL (13.5-17.5); IMMATURE GRAN ABSOLUTE AUTO 0.07 K/mm3 (0.00-0.10); IMMATURE GRAN PERCENT AUTO 1 % (0-1); LYMPHOCYTES ABSOLUTE AUTO 1.48 K/mm3 (0.84-5.20); LYMPHOCYTES PERCENT AUTO 15 % (21-46); MONOCYTES ABSOLUTE AUTO 1.04 K/mm3 (0.16-1.47); MONOCYTES PERCENT AUTO 10 % (4-13); Mean Corpuscular HGB 32.8 pg (26.0-34.0); Mean Corpuscular HGB Conc 31.7 g/dL (31.5-36.5); Mean Corpuscular Volume 104 fL (80-100); Mean Platelet Volume 9.7 fL (9.1-12.4); NEUTROPHILS ABSOLUTE AUTO 7.19 K/mm3 (1.96-9.15); NEUTROPHILS PERCENT AUTO 70 % (41-73); Platelet Count 113 K/mm3 (150-400); Red Blood Cell Count 4.54 M/mm3 (4.30-5.90); White Blood Cell Count 10.23 K/mm3 (4.00-11.30)
[2022-12-18 05:20] LABS: Albumin, Blood 2.7 g/dL (3.4-5.0); Albumin/Globulin Ratio 0.5 (0.8-1.8); Bilirubin, Total 0.8 mg/dL (0.1-1.0); Bun/Creatinine Ratio 9.3 (12.0-20.0); Calcium, Blood 9.3 mg/dL (8.5-10.1); Creatinine, Blood 6.26 mg/dL (0.60-1.20); Globulin, Blood 5.1 g/dL (2.2-4.0); Magnesium, Blood 2.6 mg/dL (1.6-2.4); Potassium, Blood 4.8 mmol/L (3.5-5.5); Total Protein, Blood 7.8 g/dL (6.4-8.2)
--- NOTE | 2022-12-18 07:27 | NUR ---
Shift Summary Pt admitted to this unit from ED with dx of UTI. He is an ESRD pt who gets dialysis, his last dialysis was 12/16. He was due for dialysis 12/17 but per report was rejected d/t low BP. Nephrology consult ordered to determine if pt will get dialysis today, unable to contact providers office at night. Pt arrived with chronic Mccain, replaced per unit protocol. Pt is bedbound and has a stage 2 pressure ulcer on his coccyx. Pallative care + case management requested because per report, pt states she cannot care for him anymore. Possible hospice. Pt Aox3 with mumbled speech.
--- NOTE | 2022-12-18 11:13 | NUR ---
Pt. is in the dialysis room. Pts son is present and welcomes my visit. Son was unsettled about the process of making a comfort care/hospice decision. Pastoral care is given, and a life review of both the Pt. and son is facilitated. Son verbalized gratitude for the spiritual care visit and welcomed this global cmo to return.
--- NOTE | 2022-12-18 17:57 | NUR ---
SHIFT SUMMARY PT RESTING QUIETLY ON CPAP AT START OF SHIFT. PT ASSISTED UP IN BED FOR BREAKFAST. PT DECLINED ASSISTANCE TO EAT, THOUGH REPORTING THAT HE WAS "A LITTLE SHAKEY THIS MORNING". PT TAKEN DOWN FOR DIALYSIS PER ORDERS. PT'S SON REQUESTING TO SPEAK WITH RESEARCH PROFESSIONAL IN ORDER TO GET HOSPICE DETAILS COMPLETED SO PT COULD GO HOME TODAY. CARE MANAGERS IN SEVERAL TIMES TO COMPLETE DETAILS. TRANSPORT SET UP FOR 1700, HOWEVER EMS CALLED TO REPORT A SLIGHT DELAY. PT READY TO D/C. BELONGINGS GATHERED AND IV SITED D/C'D WNL'S. PT'S SON UPDATED ON DELAY. CALL LT IN REACH.
== END 2022-12-18 18:48 | disposition hospice, home (50) | DRG 698 ==
LOC: ER 13:21 → MEDS 13:22
PROVIDERS: Emergency Medicine; Nurse Practitioner Acute Care; ADMIT Internal Medicine
PROC: 5A09357 Assistance with Respiratory Ventilation, Less than 24 Consecutive Hours, Continuous Positive Airway Pressure (ICD-10-PCS; principal; 2022-12-18)
DX: T83.511A Infection and inflammatory reaction due to indwelling urethral catheter, initial encounter (principal); N18.6 End stage renal disease; I50.22 Chronic systolic (congestive) heart failure; J96.11 Chronic respiratory failure with hypoxia; I48.21 Permanent atrial fibrillation; I13.2 Hypertensive heart and chronic kidney disease with heart failure and with stage 5 chronic kidney disease, or end stage renal disease; Z66 Do not resuscitate; Z51.5 Encounter for palliative care; R62.7 Adult failure to thrive; I25.10 Atherosclerotic heart disease of native coronary artery without angina pectoris; J44.9 Chronic obstructive pulmonary disease, unspecified; G47.33 Obstructive sleep apnea (adult) (pediatric); N28.89 Other specified disorders of kidney and ureter; E11.22 Type 2 diabetes mellitus with diabetic chronic kidney disease; N39.0 Urinary tract infection, site not specified; N40.0 Benign prostatic hyperplasia without lower urinary tract symptoms; B95.2 Enterococcus as the cause of diseases classified elsewhere; K21.9 Gastro-esophageal reflux disease without esophagitis; E03.9 Hypothyroidism, unspecified; Y84.6 Urinary catheterization as the cause of abnormal reaction of the patient, or of later complication, without mention of misadventure at the time of the procedure; Z90.49 Acquired absence of other specified parts of digestive tract; Z95.2 Presence of prosthetic heart valve; Z95.1 Presence of aortocoronary bypass graft; Z79.01 Long term (current) use of anticoagulants; Z95.5 Presence of coronary angioplasty implant and graft; Z88.1 Allergy status to other antibiotic agents; Z88.8 Allergy status to other drugs, medicaments and biological substances; Z99.89 Dependence on other enabling machines and devices; Z99.2 Dependence on renal dialysis; Z91.158 Patient's noncompliance with renal dialysis for other reason; Z79.899 Other long term (current) drug therapy; Z79.51 Long term (current) use of inhaled steroids; Z79.4 Long term (current) use of insulin; Z79.891 Long term (current) use of opiate analgesic; Z79.890 Hormone replacement therapy; Z68.27 Body mass index [BMI] 27.0-27.9, adult
CPT/HCPCS: 36415; 51702; 71045; 80053; 81001; 82947; 83735; 84100; 85025; 87077; 87086; 87106; 87186; 93005; 93010; 94660; 94762; 96365; 96372; 97110; 97161; 99285-25; A9270; G0378; J0696; J1644; J1815